=== PATIENT | female | born 1940 | race Caucasian/White ===

== ENCOUNTER 2016-12-31 17:41 | Inpatient (IN) | payer MEDICARE, MEDICAID ==
[~2016-12-31] VITALS: Ht 160 cm; Wt 61.0 kg
[~2016-12-31 17:41] MED LIST: ADVAIR DISK1 INH; ALBUTEROL SUL0.083 % IN; ALBUTEROL2.5 MG/3 M IN; ASPIRIN LOW DOS81 M2 PO; ATIVAN1 MG PO; ATROVENT I0.5 MG/VIA IN; AUGMENTIN500TAB PO; AUGMENTIN875 MG OR; AUGMENTIN875TAB PO; BACTROBAN2 % EX; BROVANA15 MCG IN; CEPHALEXIN500 MG PO; CIPRO500 MG OR; CIPROFLOXACN500 MG PO; DALIRESP500 MCG PO; DOXYCYC MONO100 M1 OR; FLEXERIL OR; FLEXERIL5 MG PO; FLUARIX QUADRIV1 IN2 IM; FLUARIX QUADRIV1 INJ IM; GABAPENTIN100 MG PO; GABAPENTIN300 MG PO; IRON325 M1 PO; KEFLEX500 MG PO; LEVAQUIN500 MG PO; LEVAQUIN750 MG PO; LORTAB 1010 MG PO; LORTAB 5 OR; LORTAB 5/3255 MG PO; LORTAB 7.57.5 MG PO; MEDDOSEPAK OR; MEDDOSEPAK PO; MEDROL4 M1 PO; MIRAPEX0.5 MG PO; MUCUS RELIEF E600 MG PO; MULTI VIT PO; MUPIROCIN2 % EX; NEURONTIN300 MG PO; NO HOME MEDS; NORCO1 TA1 PO; OXY1; PERCOCET 5/321 COMBO PO; PLAVIX75 MG PO; PREDNISONE10 MG PO; PREDNISONE20 MG OR; PREDNISONE20 MG PO; PRILOSEC40 MG PO; PROAIR HFA IN; PROTONIX20 M1 PO; PULMICORT0.25 MG/2 IN; PYRIDIUM200 MG OR; PYRIDIUM200 MG PO; RESTORIL15 MG PO; ROBITUSSIN AC10 ML PO; SINGULAIR PO; SINGULAIR10 MG PO; SOMA350 MG PO; TRAMADOL HCL50 MG PO; TYLENOL # 31 TA1 PO; ULTRACET 37.5-31 TAB PO; ULTRACET PO; ULTRAM50 M1 PO; ULTRAM50 MG OR; VENTOLIN HF1 IN; VENTOLIN HFA IN; ZITHROMAX250 MG PO; ZPAK PO
--- NOTE | 2016-12-31 18:00 | NUR ---
PATIENT AMBULATED TO LOBBY AWAITING ROOM ASSIGNMNET
--- NOTE | 2016-12-31 18:26 | NUR ---
PATIENT TO ROOM MD AT BEDSIDE
--- NOTE | 2016-12-31 20:02 | NUR ---
REPORT RECEIVED FROM DAYDAY HUSTON. PT RESTING QUIETLY STATES PAIN MEDICATION HAS KICKED IN AND FEELS MUCH BETTER, ANTIBIOTIC INFUSING.
--- NOTE | 2016-12-31 20:26 | NUR ---
PT RESTING QUIETLY, WARM BLANKET GIVEN, LIGHTS TURNED DOWN
--- NOTE | 2016-12-31 21:11 | NUR ---
PT STILL RESTING QUIETLY ON STRETCHER, WATCHING TV, VITAL SIGNS STABLE. PAIN HAS DECREASED TO A 3
[2016-12-31 21:17] LABS: HEMATOCRIT 37.8 % (37.0-47.0); HEMOGLOBIN 12.7 g/dl (12.0-16.0); IMMATURE GRANULOCYTES 1.6 % (0.0-1.0); MEAN CELL VOLUME 87.5 fL CALC (80.0-100.0); MEAN CORPUSCULAR HGB 29.4 pG CALC (26.0-32.0); MEAN CORPUSCULAR HGB CONC 33.6 g/L CALC (32.0-36.0); NEUT# 11.53 thou/uL (2.00-7.15); RED BLOOD COUNT 4.32 mill/uL (4.20-5.60); RED CELL DISTRI WIDTH 13.6 % (11.5-15.5)
[2016-12-31 21:32] LABS: ALBUMIN 4.3 g/dL (3.2-5.0); ALKALINE PHOSPHATASE 136 u/l (38-126); ANION GAP 16 (6-22 (CALC)); BILIRUBIN, TOTAL 0.3 mg/dL (0.0-1.4); BUN 7 mg/dL (8-23); BUN/CREATININE RATIO 11 (12-20 (CALC)); CALCIUM 9.2 mg/dL (8.4-10.2); CARBON DIOXIDE 27 mmol/l (22-30); CHLORIDE 99 mmol/l (95-108); CREATININE 0.6 mg/dL (0.5-1.0); GFR > 60 ML/MIN (>=60 (CALC)); GFR FOR AFR.AMER. > 60 ML/MIN (>=60 (CALC)); GLUCOSE 90 mg/dL (82-115); POTASSIUM 4.2 mmol/l (3.5-5.1); SGOT/AST 29 u/l (9-36); SGPT/ALT 30 u/l (11-66); SODIUM 137 mmol/l (137-146); TOTAL PROTEIN 7.6 g/dL (6.3-8.2)
--- NOTE | 2016-12-31 22:27 | NUR ---
Admission Note Report Given to: sbar printed to floor Transported by: Wheelchair x Stretcher Transported with: x Nurse Transporter x Patent IV [id number] Yard Stocker
--- NOTE | 2016-12-31 22:36 | NUR ---
REPORT GIVEN TO COTY ON MED/SURG AND PATIENT TAKEN UPSTAIRS ON THIS GURNEY BY THIS CHIEF LIFESTYLE OFFICER.
[2016-12-31 22:40] VITALS: BP 132/64
--- NOTE | 2016-12-31 22:40 | NUR ---
PT.ARRIVED TO FLOOR ACCOMPANIED BY GERTRUDEED NURSE; PT.IS STABLE AT THIS TIME; PT.ORIENTED TO ROOM,CALL LIGHT, BED,LIGHTS, V/S ASSESSED, PT.ASSESSED AND SETTLED INTO BED; CALL LIGHT AND BST PLACED W/IN REACH AND PO FLUIDS PROVIDED
--- NOTE | 2017-01-01 00:49 | NUR ---
NOTIFIED AT THIS TIME OF LACK OF ORDERS, NEW ORDERS RECEIVED AND ORDERS FOR HOME MEDS CONTINUED; WILL INITIATE ORDERS
--- NOTE | 2017-01-01 02:30 | NUR ---
PT. MEDICATED FOR PAIN IN L.HAND AND PROVIDED COOL AND WARM PACK FOR COMFORT CARE OF HAND AND PILLOW FOR POSITIONING; WILL FOLLOW-UP FOR PAIN REASSESSMENT; HOME MEDICATIONS RECONCILED UPON REQUEST FROM
[2017-01-01 03:44] VITALS: BP 115/37
[2017-01-01 06:27] LABS: HEMATOCRIT 32.4 % (37.0-47.0); HEMOGLOBIN 10.7 g/dl (12.0-16.0); IMMATURE GRANULOCYTES 0.3 % (0.0-1.0); MEAN CELL VOLUME 88.5 fL CALC (80.0-100.0); MEAN CORPUSCULAR HGB 29.2 pG CALC (26.0-32.0); NEUT# 6.49 thou/uL (2.00-7.15); RED BLOOD COUNT 3.66 mill/uL (4.20-5.60); RED CELL DISTRI WIDTH 13.5 % (11.5-15.5)
[2017-01-01 06:44] LABS: ALBUMIN 3.3 g/dL (3.2-5.0); ALKALINE PHOSPHATASE 98 u/l (38-126); ANION GAP 11 (6-22 (CALC)); BILIRUBIN, TOTAL 0.6 mg/dL (0.0-1.4); BUN 7 mg/dL (8-23); BUN/CREATININE RATIO 10 (12-20 (CALC)); CALCIUM 8.4 mg/dL (8.4-10.2); CARBON DIOXIDE 28 mmol/l (22-30); CHLORIDE 95 mmol/l (95-108); CREATININE 0.7 mg/dL (0.5-1.0); GFR > 60 ML/MIN (>=60 (CALC)); GFR FOR AFR.AMER. > 60 ML/MIN (>=60 (CALC)); GLUCOSE 78 mg/dL (82-115); POTASSIUM 3.9 mmol/l (3.5-5.1); SGOT/AST 23 u/l (9-36); SGPT/ALT 31 u/l (11-66); SODIUM 130 mmol/l (137-146); TOTAL PROTEIN 6.1 g/dL (6.3-8.2)
--- NOTE | 2017-01-01 07:41 | NUR ---
BEDSIDE REPORT RECEIVED FROM BETZAIDA HOBBS. PT REPROTS MODERATE PAIN TO LEFT HAND. PAIN MEDICATION AND SCHEDULE REVIEWED. PLAN OF CARE DISCUSSED. CALL LIGHT REVIEWED AND IN REACH. PT STATES UNDERSTANDING.
[2017-01-01 07:56] LABS: URINE BILIRUBIN - DIPSTICK NEGATIVE (NEGATIVE); URINE BLOOD DIPSTICK NEGATIVE (NEGATIVE); URINE CLARITY CLEAR; URINE COLOR YELLOW; URINE GLUCOSE - DIPSTICK NEGATIVE (NEGATIVE); URINE KETONE NEGATIVE (NEGATIVE); URINE LEUK ESTERASE NEGATIVE (NEGATIVE); URINE NITRITE - DIPSTICK NEGATIVE (Negative); URINE PH 5.5 (4.5-8.0); URINE PROTEIN - DIPSTICK NEGATIVE (NEG-TRACE); URINE UROBILINOGEN - DIPSTICK 0.2 E.U./dL (0.2)
--- NOTE | 2017-01-01 12:01 | NUR ---
PT SITTING UPRIGHT IN BED. PT'S SON AT BEDSIDE. DENIES PAIN AT THIS TIME. LEFT HAND ELEVATED ON PILLOW. WILL CONTINUE TO MONITOR.
[2017-01-01 16:00] VITALS: BP 123/61
--- NOTE | 2017-01-01 16:07 | NUR ---
PT TALKING ON CELL PHONE IN BED AT THIS TIME. APPEARS COMFORTABLE. NO COMPLAINTS. CALL LIGHT WITHIN REACH.
--- NOTE | 2017-01-01 19:00 | NUR ---
REPORT RECEIVED [facility] [place] PT.IS UPRIGHT IN BED AT THIS TIME WATCHING TV AND TALKING ON PHONE; DENIES ANY NEEDS AT THIS TIME, CALL LIGHT W/IN REACH
[2017-01-01 19:07] VITALS: BP 139/46
--- NOTE | 2017-01-01 21:00 | NUR ---
CALLED, HE IS IN ROUTE TO PERFORM A BEDSIDE D&C ON PT.FINGER, WILL PREP ROOM AND ORDERS REQUESTED
--- NOTE | 2017-01-01 21:40 | NUR ---
PERFORMED D&C AT BEDSIDE ON PT.LEFT 3RD FINGER; PT.WAS PREVIOUSLY MEDICATED W/PAIN MEDICATION ORDERED; PT.TOLERATED PROCEDURE WELL AND IS RESTING; DRESSING HAD TO BE CHANGED DUE TO BLEEDING THROUGH, BLEEDING HAS NOW SLOWED AND DRESSING IS CDI AT THIS TIME, WILL CONTINUE TO MONITOR
[2017-01-02 04:32] VITALS: BP 147/51
[2017-01-02 05:24] LABS: ALBUMIN 3.6 g/dL (3.2-5.0); ALKALINE PHOSPHATASE 110 u/l (38-126); ANION GAP 12 (6-22 (CALC)); BILIRUBIN, TOTAL 0.4 mg/dL (0.0-1.4); BUN 11 mg/dL (8-23); BUN/CREATININE RATIO 16 (12-20 (CALC)); CALCIUM 8.8 mg/dL (8.4-10.2); CARBON DIOXIDE 28 mmol/l (22-30); CHLORIDE 100 mmol/l (95-108); CREATININE 0.7 mg/dL (0.5-1.0); GFR > 60 ML/MIN (>=60 (CALC)); GFR FOR AFR.AMER. > 60 ML/MIN (>=60 (CALC)); GLUCOSE 88 mg/dL (82-115); POTASSIUM 4.1 mmol/l (3.5-5.1); SGOT/AST 27 u/l (9-36); SGPT/ALT 27 u/l (11-66); SODIUM 136 mmol/l (137-146); TOTAL PROTEIN 6.6 g/dL (6.3-8.2)
[2017-01-02 05:36] LABS: HEMATOCRIT 32.1 % (37.0-47.0); HEMOGLOBIN 10.7 g/dl (12.0-16.0); IMMATURE GRANULOCYTES 0.3 % (0.0-1.0); MEAN CELL VOLUME 88.2 fL CALC (80.0-100.0); MEAN CORPUSCULAR HGB 29.4 pG CALC (26.0-32.0); MEAN CORPUSCULAR HGB CONC 33.3 g/L CALC (32.0-36.0); NEUT# 6.61 thou/uL (2.00-7.15); RED BLOOD COUNT 3.64 mill/uL (4.20-5.60); RED CELL DISTRI WIDTH 13.3 % (11.5-15.5)
--- NOTE | 2017-01-02 06:04 | NUR ---
PT.SLEEPING SOUNDLY UPON ENTERING ROOM, REPORTS PAIN HAS IMPROVED, IV ANTIBIOTIC THERAPY PROVIDED AT THIS TIME; CALL LIGHT W/IN REACH
--- NOTE | 2017-01-02 07:25 | NUR ---
REPORT RECEIVED FROM BETZAIDA HOBBS. PT SITTING UPRIGHT IN BED. DENIES PAIN. REPORTING OF CONCERNS ENCOURAGED. PLAN OF CARE DISCUSSED. CALL LIGHT REVIEWED AND IN REACH. PT STATES UNDERSTANDING.
[2017-01-02] MEDS ORDERED: CLEOCIN150 M1 PO (09:03)
--- NOTE | 2017-01-02 09:23 | NUR ---
Vancomycin dosing Age: 76 years Weight: 61 kg Height: 160 cm Gender: Female SCR: 0.7 mg/dl Dosing weight: 61 kg IBW: 52.40 kg CRCL (ml/min): 58.3 Richar (hr-1): 0.053 Half-life (hrs): 13.08 Vd (liters): 45.75 (factor: 0.75 L/kg) Vancomycin 750 mg q12 hrs to produce a predicted peak of 33 mcg/ml and a predicted trough of 19 mcg/ml based on (Population-based pharmacokinetic analysis) Trough to be drawn 01/03/17 at 1130 prior to 4th dose.
--- NOTE | 2017-01-02 09:32 | NUR ---
DRESSING CHANGED BY DR. BRIDGES. WOUND TO LEFT MIDDLE FINGER IRRIGATED WITH SALINE, GAUZE APPLIED, SECURED WITH TAPE.
--- NOTE | 2017-01-02 10:27 | NUR ---
PT WAS SEATED ON HER BED WAITING FOR HER FINGER TO BE REDONE SINCE IT WAS BLEEDING. I COUNSELED PT ON HER NEW PRESCRIPTION CLINDAMYCIN. I COUNSELED HER ON THE NEED TO LOOK OUT FOR ANY BLOODY STOOLS OR DIARRHEA. PT DID NOT HAVE ANY SIDE EFFECTS OR CONCERNS WITH ANY MEDICATION.
== END 2017-01-02 10:45 | disposition home or self-care (01) | DRG 580 ==
LOC: ENPENDDIS → ED 17:41 → ED-I 21:36 → ED 21:58 → MS2 21:59
PROVIDERS: Emergency Medicine; ADMIT Internal Medicine Geriatric Medicine; ATTEND Internal Medicine Geriatric Medicine
PROC: 0H9GXZZ Drainage of Left Hand Skin, External Approach (ICD-10-PCS; principal; 2017-01-01)
PROC: 0JBK0ZZ Excision of Left Hand Subcutaneous Tissue and Fascia, Open Approach (ICD-10-PCS; 2017-01-01)
DX: L03.012 Cellulitis of left finger (principal); J96.10 Chronic respiratory failure, unspecified whether with hypoxia or hypercapnia; Z99.81 Dependence on supplemental oxygen; J44.9 Chronic obstructive pulmonary disease, unspecified; I25.10 Atherosclerotic heart disease of native coronary artery without angina pectoris; I10 Essential (primary) hypertension; K21.9 Gastro-esophageal reflux disease without esophagitis; E03.9 Hypothyroidism, unspecified; G89.29 Other chronic pain; M54.5 Low back pain; I73.9 Peripheral vascular disease, unspecified; M19.90 Unspecified osteoarthritis, unspecified site; Z95.820 Peripheral vascular angioplasty status with implants and grafts; Z87.891 Personal history of nicotine dependence; Z87.11 Personal history of peptic ulcer disease; E78.00 Pure hypercholesterolemia, unspecified; I25.119 Atherosclerotic heart disease of native coronary artery with unspecified angina pectoris
CPT/HCPCS: J3370

== ENCOUNTER 2017-09-15 22:32 | Inpatient (IN) | payer MEDICARE, MEDICAID ==
[~2017-09-15] VITALS: Ht 157.5 cm; Wt 59.9 kg
[~2017-09-15 22:32] MED LIST changes: +CLEOCIN150 M1 PO
[2017-09-15] MEDS ORDERED: PAROXETINE10 M1 PO (22:49)
[2017-09-15] MEDS ORDERED: OMEPRAZOLE10 MG PO (22:50)
[2017-09-15] MEDS ORDERED: FLEXERIL5 MG PO (22:51)
[2017-09-15 23:12] LABS: HEMATOCRIT 37.1 % (37.0-47.0); HEMOGLOBIN 12.3 g/dl (12.0-16.0); IMMATURE GRANULOCYTES 0.3 % (0.0-1.0); MEAN CELL VOLUME 89.4 fL CALC (80.0-100.0); MEAN CORPUSCULAR HGB 29.6 pG CALC (26.0-32.0); MEAN CORPUSCULAR HGB CONC 33.2 g/L CALC (32.0-36.0); NEUT# 11.36 thou/uL (2.00-7.15); RED BLOOD COUNT 4.15 mill/uL (4.20-5.60); RED CELL DISTRI WIDTH 13.7 % (11.5-15.5)
[2017-09-15 23:19] LABS: ALBUMIN 4.4 g/dL (3.2-5.0); ALKALINE PHOSPHATASE 110 u/l (38-126); ANION GAP 15 (6-22 (CALC)); BILIRUBIN, TOTAL 0.8 mg/dL (0.0-1.4); BUN 9 mg/dL (8-23); BUN/CREATININE RATIO 15 (12-20 (CALC)); CALCIUM 9.3 mg/dL (8.4-10.2); CARBON DIOXIDE 27 mmol/l (22-30); CHLORIDE 97 mmol/l (95-108); CREATININE 0.6 mg/dL (0.5-1.0); GFR > 60 ML/MIN (>=60 (CALC)); GFR FOR AFR.AMER. > 60 ML/MIN (>=60 (CALC)); GLUCOSE 116 mg/dL (82-115); POTASSIUM 4.5 mmol/l (3.5-5.1); SGOT/AST 36 u/l (9-36); SGPT/ALT 16 u/l (11-66); SODIUM 134 mmol/l (137-146); TOTAL PROTEIN 7.9 g/dL (6.3-8.2)
[2017-09-15 23:31] LABS: MYOGLOBIN 85 ng/mL (0 - 62)
[2017-09-15 23:54] LABS: URINE BILIRUBIN - DIPSTICK NEGATIVE (NEGATIVE); URINE BLOOD DIPSTICK NEGATIVE (NEGATIVE); URINE COLOR YELLOW; URINE GLUCOSE - DIPSTICK NEGATIVE (NEGATIVE); URINE KETONE NEGATIVE (NEGATIVE); URINE LEUK ESTERASE NEGATIVE (NEGATIVE); URINE NITRITE - DIPSTICK NEGATIVE (Negative); URINE PROTEIN - DIPSTICK NEGATIVE (NEG-TRACE); URINE SPECIFIC GRAVITY <=1.005; URINE UROBILINOGEN - DIPSTICK 0.2 E.U./dL (0.2)
[2017-09-15 23:55] LABS: URINE CLARITY CLEAR
[2017-09-16 01:21] VITALS: BP 139/62
[2017-09-16 03:50] VITALS: BP 133/62
[2017-09-16 07:34] VITALS: BP 149/58
[2017-09-16] MEDS ORDERED: PLAVIX75 MG PO (09:01)
== END 2017-09-16 09:10 | disposition home or self-care (01) | DRG 191 ==
LOC: ED 22:32 → ED-I 09-16 → ED 09-16 00:39 → MS2 09-16 00:40
PROVIDERS: Emergency Medicine; ADMIT Internal Medicine Geriatric Medicine; ATTEND Internal Medicine Geriatric Medicine
DX: J44.1 Chronic obstructive pulmonary disease with (acute) exacerbation (principal); J96.10 Chronic respiratory failure, unspecified whether with hypoxia or hypercapnia; G62.9 Polyneuropathy, unspecified; Z99.81 Dependence on supplemental oxygen; I10 Essential (primary) hypertension; I25.10 Atherosclerotic heart disease of native coronary artery without angina pectoris; I73.9 Peripheral vascular disease, unspecified; K21.9 Gastro-esophageal reflux disease without esophagitis; K27.9 Peptic ulcer, site unspecified, unspecified as acute or chronic, without hemorrhage or perforation; E03.9 Hypothyroidism, unspecified; M19.90 Unspecified osteoarthritis, unspecified site; Z95.820 Peripheral vascular angioplasty status with implants and grafts

== ENCOUNTER 2017-11-23 22:37 | Emergency (ER) | payer MEDICARE, MEDICAID ==
[~2017-11-23] VITALS: Ht 157.5 cm; Wt 58.6 kg
[~2017-11-23 22:37] MED LIST changes: +OMEPRAZOLE10 MG PO; +PAROXETINE10 M1 PO
[2017-11-24 01:15] LABS: HEMATOCRIT 38.2 % (37.0-47.0); HEMOGLOBIN 12.3 g/dl (12.0-16.0); IMMATURE GRANULOCYTES 0.4 % (0.0-1.0); MEAN CELL VOLUME 88.2 fL CALC (80.0-100.0); MEAN CORPUSCULAR HGB 28.4 pG CALC (26.0-32.0); MEAN CORPUSCULAR HGB CONC 32.2 g/L CALC (32.0-36.0); NEUT# 5.31 thou/uL (2.00-7.15); RED BLOOD COUNT 4.33 mill/uL (4.20-5.60); RED CELL DISTRI WIDTH 14.2 % (11.5-15.5)
[2017-11-24 01:25] LABS: ALBUMIN 4.2 g/dL (3.2-5.0); ALKALINE PHOSPHATASE 135 u/l (38-126); ANION GAP 16 (6-22 (CALC)); BILIRUBIN, TOTAL 0.3 mg/dL (0.0-1.4); BUN 8 mg/dL (8-23); BUN/CREATININE RATIO 11 (12-20 (CALC)); CARBON DIOXIDE 28 mmol/l (22-30); CHLORIDE 100 mmol/l (95-108); CREATININE 0.7 mg/dL (0.5-1.0); GFR > 60 ML/MIN (>=60 (CALC)); GFR FOR AFR.AMER. > 60 ML/MIN (>=60 (CALC)); POTASSIUM 3.7 mmol/l (3.5-5.1); SGOT/AST 23 u/l (9-36); SGPT/ALT 16 u/l (11-66); SODIUM 140 mmol/l (137-146); TOTAL PROTEIN 7.9 g/dL (6.3-8.2)
[2017-11-24 01:30] LABS: INFLUENZA A NONE DETECTED (NONE DETECT); INFLUENZA B NONE DETECTED (NONE DETECT)
--- NOTE | 2017-11-24 01:30 | NUR ---
BREATHING TREATMENT GIVEN. BREATHING TECH. FOR GOOD DEPOSITION TO THE LUNGS. AND IN CASE OF SHORTNESS OF BREATH.
[2017-11-24] MEDS ORDERED: MEDDOSEPAK PO (02:29)
[2017-11-24 03:07] VITALS: BP 145/73
== END 2017-11-24 03:04 | disposition home or self-care (01) ==
LOC: ED 22:37
PROVIDERS: Emergency Medicine
DX: J44.1 Chronic obstructive pulmonary disease with (acute) exacerbation (principal); I25.10 Atherosclerotic heart disease of native coronary artery without angina pectoris; I73.9 Peripheral vascular disease, unspecified; R06.02 Shortness of breath

== ENCOUNTER 2018-10-29 10:05 | Inpatient (IN) | payer MEDICARE, MEDICAID ==
[2018-10-29] VITALS (36 sets, daily range): BP systolic 79–159; BP diastolic 57–76
[~2018-10-29] VITALS: Ht 157.5 cm; Wt 57.2 kg
[2018-10-29 10:46] LABS: HEMATOCRIT 36.9 % (37.0-47.0); HEMOGLOBIN 12.4 g/dl (12.0-16.0); IMMATURE GRANULOCYTES 1.3 % (0.0-5.0); MEAN CELL VOLUME 89.8 fL CALC (80.0-100.0); MEAN CORPUSCULAR HGB 30.2 pG CALC (26.0-32.0); MEAN CORPUSCULAR HGB CONC 33.6 g/L CALC (32.0-36.0); PLATELET COUNT 269 thou/uL (130-400); RED BLOOD COUNT 4.11 mill/uL (4.20-5.60); RED CELL DISTRI WIDTH 13.9 % (11.5-15.5)
[2018-10-29 10:53] LABS: ALBUMIN 4.1 g/dL (3.2-5.0); ALKALINE PHOSPHATASE 67 u/l (38-126); ANION GAP 21 (6-22 (CALC)); BILIRUBIN, TOTAL 0.9 mg/dL (0.0-1.4); BUN 20 mg/dL (8-23); BUN/CREATININE RATIO 13 (12-20 (CALC)); CHLORIDE 94 mmol/l (95-108); CREATININE 1.5 mg/dL (0.5-1.0); GFR 34 ML/MIN (>=60 (CALC)); GFR FOR AFR.AMER. 41 ML/MIN (>=60 (CALC)); SGOT/AST 50 u/l (9-36); SODIUM 132 mmol/l (137-146); TOTAL PROTEIN 7.7 g/dL (6.3-8.2)
[2018-10-29 11:00] LABS: CARBON DIOXIDE 21 mmol/l (22-30)
[2018-10-29] MEDS ORDERED: XANAX0.5 MG PO (11:00)
[2018-10-29] MEDS ORDERED: LORTAB 5/3255 MG PO (11:01)
[2018-10-29] MEDS ORDERED: PROAIR HFA IN (11:02)
[2018-10-29] MEDS ORDERED: BROVANA15 MCG/2 M IN (11:03)
[2018-10-29] MEDS ORDERED: MULTI VIT PO (11:04)
[2018-10-29 11:06] LABS: MYOGLOBIN 373 ng/mL (0 - 62)
[2018-10-29 11:14] LABS: BAND 34 % (0-8)
[2018-10-29 11:15] LABS: MANUAL DIFFERENTIAL YES
[2018-10-29] MEDS ORDERED: SIMBRINZA1 SUS OD (12:13)
[2018-10-29] MEDS ORDERED: PROLENSA0.07 % OD (12:14)
[2018-10-29] MEDS ORDERED: DUREZOL0.05 % OD (12:15)
[2018-10-30] VITALS (19 sets, daily range): BP systolic 107–158; BP diastolic 57–77
[2018-10-30 05:28] LABS: HEMATOCRIT 32.4 % (37.0-47.0); HEMOGLOBIN 10.5 g/dl (12.0-16.0); IMMATURE GRANULOCYTES 5.4 % (0.0-5.0); MEAN CORPUSCULAR HGB 29.2 pG CALC (26.0-32.0); MEAN CORPUSCULAR HGB CONC 32.4 g/L CALC (32.0-36.0); RED CELL DISTRI WIDTH 13.8 % (11.5-15.5)
[2018-10-30 05:44] LABS: ALKALINE PHOSPHATASE 58 u/l (38-126); ANION GAP 12 (6-22 (CALC)); BILIRUBIN, TOTAL 0.3 mg/dL (0.0-1.4); BUN 18 mg/dL (8-23); BUN/CREATININE RATIO 23 (12-20 (CALC)); CARBON DIOXIDE 24 mmol/l (22-30); CHLORIDE 100 mmol/l (95-108); CREATININE 0.8 mg/dL (0.5-1.0); GFR > 60 ML/MIN (>=60 (CALC)); GFR FOR AFR.AMER. > 60 ML/MIN (>=60 (CALC)); POTASSIUM 3.5 mmol/l (3.5-5.1); SGOT/AST 29 u/l (9-36); SODIUM 132 mmol/l (137-146); TOTAL PROTEIN 6.5 g/dL (6.3-8.2)
[2018-10-30 05:54] LABS: ALBUMIN 3.2 g/dL (3.2-5.0)
[2018-10-30 06:25] LABS: MANUAL DIFFERENTIAL YES; PLATELET COUNT 185 thou/uL (130-400)
[2018-10-30 06:26] LABS: BAND 20 % (0-8)
[2018-10-30 06:27] LABS: MICROCYTOSIS FEW; PLATELET ESTIMATE NORMAL
[2018-10-30 06:28] LABS: HYPOCHROMIA MODERATE; OVALOCYTES FEW; STOMATOCYTE FEW
[2018-10-31] VITALS (13 sets, daily range): BP systolic 119–206; BP diastolic 53–73
[2018-10-31 05:55] LABS: HEMATOCRIT 28.7 % (37.0-47.0); HEMOGLOBIN 9.6 g/dl (12.0-16.0); MEAN CELL VOLUME 87.5 fL CALC (80.0-100.0); MEAN CORPUSCULAR HGB 29.3 pG CALC (26.0-32.0); MEAN CORPUSCULAR HGB CONC 33.4 g/L CALC (32.0-36.0); NEUT# 18.42 thou/uL (2.00-7.15); RED BLOOD COUNT 3.28 mill/uL (4.20-5.60); RED CELL DISTRI WIDTH 13.6 % (11.5-15.5)
[2018-10-31 06:03] LABS: ALBUMIN 2.8 g/dL (3.2-5.0); ALKALINE PHOSPHATASE 74 u/l (38-126); BILIRUBIN, TOTAL 0.3 mg/dL (0.0-1.4); BUN 12 mg/dL (8-23); BUN/CREATININE RATIO 21 (12-20 (CALC)); CARBON DIOXIDE 22 mmol/l (22-30); CHLORIDE 101 mmol/l (95-108); CREATININE 0.6 mg/dL (0.5-1.0); GFR > 60 ML/MIN (>=60 (CALC)); GFR FOR AFR.AMER. > 60 ML/MIN (>=60 (CALC)); SGOT/AST 24 u/l (9-36); SODIUM 130 mmol/l (137-146); TOTAL PROTEIN 5.7 g/dL (6.3-8.2)
[2018-10-31 06:10] LABS: ANION GAP 11 (6-22 (CALC)); POTASSIUM 4.3 mmol/l (3.5-5.1)
[2018-10-31 07:01] LABS: IMMATURE GRANULOCYTES 6.3 % (0.0-5.0)
[2018-11-01] VITALS: BP 159/78
[2018-11-01 02:00] VITALS: BP 173/74
[2018-11-01 04:00] VITALS: BP 176/68
[2018-11-01 06:00] VITALS: BP 164/72
[2018-11-01 06:02] LABS: HEMATOCRIT 29.8 % (37.0-47.0); IMMATURE GRANULOCYTES 0.5 % (0.0-5.0); MEAN CELL VOLUME 87.9 fL CALC (80.0-100.0); MEAN CORPUSCULAR HGB 29.5 pG CALC (26.0-32.0); MEAN CORPUSCULAR HGB CONC 33.6 g/L CALC (32.0-36.0); NEUT# 15.24 thou/uL (2.00-7.15); RED BLOOD COUNT 3.39 mill/uL (4.20-5.60)
[2018-11-01 06:13] LABS: ANION GAP 11 (6-22 (CALC)); BUN 10 mg/dL (8-23); BUN/CREATININE RATIO 21 (12-20 (CALC)); CARBON DIOXIDE 26 mmol/l (22-30); CHLORIDE 102 mmol/l (95-108); CREATININE 0.5 mg/dL (0.5-1.0); GFR > 60 ML/MIN (>=60 (CALC)); GFR FOR AFR.AMER. > 60 ML/MIN (>=60 (CALC)); POTASSIUM 4.4 mmol/l (3.5-5.1); SODIUM 135 mmol/l (137-146)
[2018-11-01 08:00] VITALS: BP 183/83
[2018-11-01] MEDS ORDERED: PREDNISONE20 MG PO (08:35)
[2018-11-01] MEDS ORDERED: Levaquin PO (08:35)
[2018-11-01] MEDS ORDERED: DIGOXIN0.125 MG PO (08:36)
[2018-11-01 10:00] VITALS: BP 165/75
== END 2018-11-01 10:13 | disposition home or self-care (01) | DRG 191 ==
LOC: ED 10:05 → ED-I 13:13 → ED 13:48 → ICU 13:49
PROVIDERS: Emergency Medicine; ADMIT Internal Medicine Geriatric Medicine; ATTEND Internal Medicine Geriatric Medicine
PROC: 0T9B70Z Drainage of Bladder with Drainage Device, Via Natural or Artificial Opening (ICD-10-PCS; principal; 2018-10-29)
DX: J44.1 Chronic obstructive pulmonary disease with (acute) exacerbation (principal); J96.10 Chronic respiratory failure, unspecified whether with hypoxia or hypercapnia; I10 Essential (primary) hypertension; I25.10 Atherosclerotic heart disease of native coronary artery without angina pectoris; I73.9 Peripheral vascular disease, unspecified; I48.0 Paroxysmal atrial fibrillation; M19.90 Unspecified osteoarthritis, unspecified site; K27.9 Peptic ulcer, site unspecified, unspecified as acute or chronic, without hemorrhage or perforation; K21.9 Gastro-esophageal reflux disease without esophagitis; Z99.81 Dependence on supplemental oxygen; Z95.820 Peripheral vascular angioplasty status with implants and grafts
CPT/HCPCS: J0282; J1160; J3475; S0164

== ENCOUNTER 2018-11-28 14:10 | Emergency (ER) | payer MEDICARE, MEDICAID ==
[~2018-11-28] VITALS: Ht 157.5 cm; Wt 56.8 kg
[~2018-11-28 14:10] MED LIST changes: +BROVANA15 MCG/2 M IN; +DIGOXIN0.125 MG PO; +DUREZOL0.05 % OD; +Levaquin PO; +PROLENSA0.07 % OD; +SIMBRINZA1 SUS OD; +XANAX0.5 MG PO
[2018-11-28 14:44] LABS: HEMOGLOBIN 11.7 g/dl (12.0-16.0); IMMATURE GRANULOCYTES 0.4 % (0.0-5.0); MEAN CELL VOLUME 89.7 fL CALC (80.0-100.0); MEAN CORPUSCULAR HGB 28.6 pG CALC (26.0-32.0); MEAN CORPUSCULAR HGB CONC 31.9 g/L CALC (32.0-36.0); NEUT# 13.36 thou/uL (2.00-7.15); RED BLOOD COUNT 4.09 mill/uL (4.20-5.60); RED CELL DISTRI WIDTH 13.8 % (11.5-15.5)
[2018-11-28 14:45] LABS: HEMATOCRIT 36.7 % (37.0-47.0)
[2018-11-28 15:11] LABS: ALKALINE PHOSPHATASE 87 u/l (38-126); ANION GAP 17 (6-22 (CALC)); BILIRUBIN, TOTAL 0.5 mg/dL (0.0-1.4); BUN 9 mg/dL (8-23); BUN/CREATININE RATIO 16 (12-20 (CALC)); CARBON DIOXIDE 25 mmol/l (22-30); CHLORIDE 93 mmol/l (95-108); CREATININE 0.6 mg/dL (0.5-1.0); GFR > 60 ML/MIN (>=60 (CALC)); GFR FOR AFR.AMER. > 60 ML/MIN (>=60 (CALC)); POTASSIUM 4.9 mmol/l (3.5-5.1); SGOT/AST 28 u/l (9-36); SODIUM 129 mmol/l (137-146)
[2018-11-28 15:14] LABS: ALBUMIN 4.2 g/dL (3.2-5.0); TOTAL PROTEIN 7.7 g/dL (6.3-8.2)
[2018-11-28 16:42] VITALS: BP 164/71
[2018-11-28] MEDS ORDERED: ZITHROMAX250 MG PO (16:46)
[2018-11-28] MEDS ORDERED: MEDDOSEPAK PO (16:49)
== END 2018-11-28 16:58 | disposition home or self-care (01) ==
LOC: ED 14:10
PROVIDERS: Emergency Medicine
DX: R41.0 Disorientation, unspecified (principal); T50.905A Adverse effect of unspecified drugs, medicaments and biological substances, initial encounter; J06.9 Acute upper respiratory infection, unspecified; J44.9 Chronic obstructive pulmonary disease, unspecified; M19.90 Unspecified osteoarthritis, unspecified site; I73.9 Peripheral vascular disease, unspecified; I25.10 Atherosclerotic heart disease of native coronary artery without angina pectoris; F32.9 Major depressive disorder, single episode, unspecified; Z99.81 Dependence on supplemental oxygen; R94.31 Abnormal electrocardiogram [ECG] [EKG]

== ENCOUNTER → 2018-12-15 | Outpatient (REF) | payer MEDICARE, MEDICAID ==
[2018-12-15 13:50] LABS: HEMATOCRIT 37.4 % (37.0-47.0); HEMOGLOBIN 11.7 g/dl (12.0-16.0); IMMATURE GRANULOCYTES 0.3 % (0.0-5.0); MEAN CELL VOLUME 90.1 fL CALC (80.0-100.0); MEAN CORPUSCULAR HGB 28.2 pG CALC (26.0-32.0); MEAN CORPUSCULAR HGB CONC 31.3 g/L CALC (32.0-36.0); NEUT# 6.76 thou/uL (2.00-7.15); RED BLOOD COUNT 4.15 mill/uL (4.20-5.60); RED CELL DISTRI WIDTH 13.9 % (11.5-15.5)
[2018-12-15 14:27] LABS: ALBUMIN 4.4 g/dL (3.2-5.0); ALKALINE PHOSPHATASE 97 u/l (38-126); BILIRUBIN, TOTAL 0.5 mg/dL (0.0-1.4); BUN 10 mg/dL (8-23); BUN/CREATININE RATIO 19 (12-20 (CALC)); CALCULATED LDLCHOLESTEROL 93 mg/dL (62-129 (CALC)); CARBON DIOXIDE 30 mmol/l (22-30); CHLORIDE 96 mmol/l (95-108); CREATININE 0.6 mg/dL (0.5-1.0); GFR > 60 ML/MIN (>=60 (CALC)); GFR FOR AFR.AMER. > 60 ML/MIN (>=60 (CALC)); HDL CHOLESTEROL 105 mg/dL (>=40); SGOT/AST 31 u/l (9-36); TOTAL CHOLESTEROL 211 mg/dl (0-199); TOTAL PROTEIN 8.1 g/dL (6.3-8.2); TRIGLYCERIDES REFLEX TO dLDL 70 mg/dl (30-149); VLDL CHOLESTROL 14 mg/dl (0-48 (CALC))
[2018-12-15 14:33] LABS: ANION GAP 14 (6-22 (CALC)); POTASSIUM 3.9 mmol/l (3.5-5.1); SODIUM 136 mmol/l (137-146)
== END | disposition home or self-care (01) ==
LOC: LAB 13:31
PROVIDERS: ATTEND Internal Medicine Geriatric Medicine
DX: I10 Essential (primary) hypertension (principal)

== ENCOUNTER 2019-02-03 10:24 | Emergency (ER) | payer MEDICARE, MEDICAID ==
[~2019-02-03] VITALS: Ht 157.5 cm; Wt 45.0 kg
[2019-02-03 11:12] LABS: HEMATOCRIT 34.4 % (37.0-47.0); HEMOGLOBIN 10.8 g/dl (12.0-16.0); IMMATURE GRANULOCYTES 0.3 % (0.0-5.0); MEAN CELL VOLUME 88.4 fL CALC (80.0-100.0); MEAN CORPUSCULAR HGB 27.8 pG CALC (26.0-32.0); MEAN CORPUSCULAR HGB CONC 31.4 g/L CALC (32.0-36.0); NEUT# 5.86 thou/uL (2.00-7.15); RED BLOOD COUNT 3.89 mill/uL (4.20-5.60); RED CELL DISTRI WIDTH 13.6 % (11.5-15.5)
[2019-02-03 12:31] LABS: PROTHROMBIN TIME 10.1 SECONDS (9.0-12.5)
[2019-02-03] MEDS ORDERED: CATAPRES0.1 MG PO (12:37)
[2019-02-03 12:49] VITALS: BP 187/77
== END 2019-02-03 13:21 | disposition home or self-care (01) ==
LOC: ED 10:24
PROVIDERS: Emergency Medicine
PROC: 2Y41X5Z Packing of Nasal Region using Packing Material (ICD-10-PCS; principal; 2019-02-03)
DX: R04.0 Epistaxis (principal); I10 Essential (primary) hypertension; J44.9 Chronic obstructive pulmonary disease, unspecified; I25.10 Atherosclerotic heart disease of native coronary artery without angina pectoris; Z99.81 Dependence on supplemental oxygen

== ENCOUNTER 2019-03-05 14:38 | Emergency (ER) | payer MEDICARE, MEDICAID ==
[~2019-03-05] VITALS: Ht 157.5 cm; Wt 58.0 kg
[~2019-03-05 14:38] MED LIST changes: +CATAPRES0.1 MG PO
[2019-03-05 15:43] VITALS: BP 128/52
== END 2019-03-05 15:43 | disposition home or self-care (01) ==
LOC: ED 14:38
PROC: 2Y41X5Z Packing of Nasal Region using Packing Material (ICD-10-PCS; principal; 2019-03-05)
DX: R04.0 Epistaxis (principal)

== ENCOUNTER 2019-04-11 13:00 | Emergency (ER) | payer MEDICARE, MEDICAID ==
[~2019-04-11] VITALS: Ht 157.5 cm; Wt 58.0 kg
[2019-04-11] MEDS ORDERED: NORCO1 TA1 PO (13:23)
[2019-04-11] MEDS ORDERED: NEURONTIN100 MG PO (13:23)
[2019-04-11] MEDS ORDERED: PAROXETINE10 MG PO (13:24)
[2019-04-11] MEDS ORDERED: RESTORIL15 MG PO (13:25)
[2019-04-11] MEDS ORDERED: DIGOXIN0.125 MG PO (13:25)
[2019-04-11] MEDS ORDERED: CYCLOBENZAPR5 MG PO (13:26)
[2019-04-11] MEDS ORDERED: LOPRESSOR25 MG PO (13:27)
[2019-04-11] MEDS ORDERED: CLONIDINE0.1 MG PO (13:28)
[2019-04-11] MEDS ORDERED: MONTELUKAST SOD10 MG PO (13:28)
[2019-04-11] MEDS ORDERED: ATORVASTATIN CA10 MG PO (13:29)
[2019-04-11] MEDS ORDERED: ADLT ASA LOW81 MG PO (13:29)
[2019-04-11] MEDS ORDERED: PRAMIPEXOLE DI0.5 MG PO (13:30)
[2019-04-11] MEDS ORDERED: PRILOSEC20 MG PO (13:31)
[2019-04-11] MEDS ORDERED: DALIRESP500 MCG PO (13:32)
[2019-04-11] MEDS ORDERED: OXY1 (13:34)
[2019-04-11 14:50] VITALS: BP 134/54
== END 2019-04-11 14:50 | disposition home or self-care (01) ==
LOC: ED 13:00
DX: M19.032 Primary osteoarthritis, left wrist (principal); I10 Essential (primary) hypertension; J44.9 Chronic obstructive pulmonary disease, unspecified; I25.10 Atherosclerotic heart disease of native coronary artery without angina pectoris; I73.9 Peripheral vascular disease, unspecified; Z99.81 Dependence on supplemental oxygen

== ENCOUNTER 2020-06-01 09:55 | Inpatient (IN) | payer MEDICARE, MEDICAID ==
[~2020-06-01] VITALS: Ht 157.5 cm; Wt 51.6 kg
[~2020-06-01 09:55] MED LIST changes: +ADLT ASA LOW81 MG PO; +ATORVASTATIN CA10 MG PO; +CLONIDINE0.1 MG PO; +CYCLOBENZAPR5 MG PO; +LOPRESSOR25 MG PO; +MONTELUKAST SOD10 MG PO; +NEURONTIN100 MG PO; +PAROXETINE10 MG PO; +PRAMIPEXOLE DI0.5 MG PO; +PRILOSEC20 MG PO
[2020-06-01 10:27] LABS: HEMATOCRIT 36.9 % (37.0-47.0); HEMOGLOBIN 11.2 g/dl (12.0-16.0); IMMATURE GRANULOCYTES 0.5 % (0.0-5.0); MEAN CELL VOLUME 88.9 fL CALC (80.0-100.0); MEAN CORPUSCULAR HGB CONC 30.4 g/dL CAL (32.0-36.0); NEUT# 21.58 thou/uL (2.00-7.15); RED BLOOD COUNT 4.15 mill/uL (4.20-5.60); RED CELL DISTRI WIDTH 13.7 % (11.5-15.5)
[2020-06-01 10:41] LABS: ALBUMIN 4.1 g/dL (3.2-5.0); ALKALINE PHOSPHATASE 107 u/l (38-126); ANION GAP 13 (6-22 (CALC)); BILIRUBIN, TOTAL 0.5 mg/dL (0.0-1.4); BUN 9 mg/dL (8-23); BUN/CREATININE RATIO 18 (12-20 (CALC)); C-REACTIVE PROTEIN 1.5 mg/dL (0-0.9); CARBON DIOXIDE 26 mmol/l (22-30); CHLORIDE 99 mmol/l (95-108); CREATININE 0.5 mg/dL (0.5-1.0); GFR > 60 ML/MIN (>=60 (CALC)); GFR FOR AFR.AMER. > 60 ML/MIN (>=60 (CALC)); LIPASE 30 u/l (23-300); MAGNESIUM 1.4 mg/dL (1.6-2.3); POTASSIUM 3.9 mmol/l (3.5-5.1); SGOT/AST 25 u/l (9-36); SODIUM 133 mmol/l (137-146); TOTAL PROTEIN 7.7 g/dL (6.3-8.2)
[2020-06-01 10:44] LABS: PROTHROMBIN TIME 10.2 SECONDS (9.0-12.5)
[2020-06-01] MEDS ORDERED: ALPRAZOLAM0.5 MG PO (12:23)
[2020-06-01] MEDS ORDERED: CLONIDINE0.1 MG PO (12:24)
[2020-06-01] MEDS ORDERED: REGLAN10 MG PO (12:25)
[2020-06-01] MEDS ORDERED: NORVASC5 M1 PO (12:26)
[2020-06-01] MEDS ORDERED: LIPITOR10 M1 PO (12:27)
[2020-06-01] MEDS ORDERED: FERR SULFATE325 MG PO (12:28)
[2020-06-01] MEDS ORDERED: STIOLTO RESPIMA1 AER IN (12:28)
[2020-06-01] MEDS ORDERED: GABAPENTIN100 MG PO (12:29)
[2020-06-01 12:50] VITALS: BP 167/66
[2020-06-01 15:35] VITALS: BP 126/86
[2020-06-01 15:51] LABS: URINE BILIRUBIN - DIPSTICK NEGATIVE (NEGATIVE); URINE BLOOD DIPSTICK NEGATIVE (NEGATIVE); URINE COLOR YELLOW; URINE GLUCOSE - DIPSTICK NEGATIVE (NEGATIVE); URINE KETONE NEGATIVE (NEGATIVE); URINE LEUK ESTERASE NEGATIVE (NEGATIVE); URINE NITRITE - DIPSTICK NEGATIVE (Negative); URINE PH 6.5 (4.5-8.0); URINE PROTEIN - DIPSTICK NEGATIVE (NEG-TRACE); URINE SPECIFIC GRAVITY 1.015; URINE UROBILINOGEN - DIPSTICK 0.2 E.U./dL (0.2)
[2020-06-01 19:30] VITALS: BP 157/63
[2020-06-01 20:13] VITALS: BP 140/75
[2020-06-01 23:56] VITALS: BP 149/63
[2020-06-02 04:20] VITALS: BP 143/61
[2020-06-02 05:57] LABS: MEAN CELL VOLUME 89.9 fL CALC (80.0-100.0); MEAN CORPUSCULAR HGB 27.3 pG CALC (26.0-32.0); MEAN CORPUSCULAR HGB CONC 30.3 g/dL CAL (32.0-36.0); RED BLOOD COUNT 3.08 mill/uL (4.20-5.60); RED CELL DISTRI WIDTH 14.2 % (11.5-15.5)
[2020-06-02 06:00] LABS: HEMATOCRIT 27.7 % (37.0-47.0); HEMOGLOBIN 8.4 g/dl (12.0-16.0)
[2020-06-02 06:19] LABS: ALKALINE PHOSPHATASE 78 u/l (38-126); ANION GAP 5 (6-22 (CALC)); BILIRUBIN, TOTAL 0.3 mg/dL (0.0-1.4); BUN 11 mg/dL (8-23); BUN/CREATININE RATIO 22 (12-20 (CALC)); CARBON DIOXIDE 27 mmol/l (22-30); CHLORIDE 105 mmol/l (95-108); CREATININE 0.5 mg/dL (0.5-1.0); GFR > 60 ML/MIN (>=60 (CALC)); GFR FOR AFR.AMER. > 60 ML/MIN (>=60 (CALC)); SGOT/AST 19 u/l (9-36); SODIUM 133 mmol/l (137-146)
[2020-06-02 06:21] LABS: ALBUMIN 2.8 g/dL (3.2-5.0); TOTAL PROTEIN 5.6 g/dL (6.3-8.2)
[2020-06-02 06:37] LABS: C-REACTIVE PROTEIN 16.6 mg/dL (0-0.9)
[2020-06-02 08:48] VITALS: BP 127/48
[2020-06-02 10:30] VITALS: BP 143/67
[2020-06-02 15:00] VITALS: BP 164/69
[2020-06-02 19:35] VITALS: BP 171/72
[2020-06-02 23:44] VITALS: BP 144/78
[2020-06-03 04:47] VITALS: BP 120/59
[2020-06-03 05:25] LABS: HEMATOCRIT 28.2 % (37.0-47.0); HEMOGLOBIN 8.6 g/dl (12.0-16.0); IMMATURE GRANULOCYTES 0.4 % (0.0-5.0); MEAN CELL VOLUME 90.1 fL CALC (80.0-100.0); MEAN CORPUSCULAR HGB 27.5 pG CALC (26.0-32.0); MEAN CORPUSCULAR HGB CONC 30.5 g/dL CAL (32.0-36.0); NEUT# 9.65 thou/uL (2.00-7.15); RED BLOOD COUNT 3.13 mill/uL (4.20-5.60); RED CELL DISTRI WIDTH 14.3 % (11.5-15.5)
[2020-06-03 05:47] LABS: ALKALINE PHOSPHATASE 87 u/l (38-126); ANION GAP 8 (6-22 (CALC)); BILIRUBIN, TOTAL 0.3 mg/dL (0.0-1.4); BUN 12 mg/dL (8-23); BUN/CREATININE RATIO 19 (12-20 (CALC)); CARBON DIOXIDE 29 mmol/l (22-30); CHLORIDE 99 mmol/l (95-108); CREATININE 0.6 mg/dL (0.5-1.0); GFR > 60 ML/MIN (>=60 (CALC)); GFR FOR AFR.AMER. > 60 ML/MIN (>=60 (CALC)); POTASSIUM 3.9 mmol/l (3.5-5.1); SGOT/AST 23 u/l (9-36); SODIUM 132 mmol/l (137-146)
[2020-06-03 10:30] VITALS: BP 131/56
[2020-06-03] MEDS ORDERED: MEDDOSEPAK PO (10:59)
[2020-06-03] MEDS ORDERED: AMOX/K CLAV875 M1 PO (11:07)
== END 2020-06-03 14:09 | disposition home or self-care (01) | DRG 194 ==
LOC: ED 09:55 → ED-I 11:10 → ED 11:56 → MS2 11:57
PROVIDERS: Family Medicine; Nurse Practitioner; Physician Assistant; ADMIT Internal Medicine; ATTEND Internal Medicine
DX: J18.9 Pneumonia, unspecified organism (principal); J96.10 Chronic respiratory failure, unspecified whether with hypoxia or hypercapnia; J44.0 Chronic obstructive pulmonary disease with (acute) lower respiratory infection; J44.1 Chronic obstructive pulmonary disease with (acute) exacerbation; E87.1 Hypo-osmolality and hyponatremia; I10 Essential (primary) hypertension; E83.42 Hypomagnesemia; I25.10 Atherosclerotic heart disease of native coronary artery without angina pectoris; K21.9 Gastro-esophageal reflux disease without esophagitis; I48.91 Unspecified atrial fibrillation; I73.9 Peripheral vascular disease, unspecified; Z99.81 Dependence on supplemental oxygen; Z20.828 Contact with and (suspected) exposure to other viral communicable diseases; E78.49 Other hyperlipidemia
CPT/HCPCS: J0692; J1650; J3370; J3475

== ENCOUNTER 2021-10-13 18:09 | Observation (INO) | payer MEDICARE, MEDICAID ==
[~2021-10-13] VITALS: Ht 154.9 cm; Wt 45.0 kg
[~2021-10-13 18:09] MED LIST changes: +ALPRAZOLAM0.5 MG PO; +AMOX/K CLAV875 M1 PO; +FERR SULFATE325 MG PO; +LIPITOR10 M1 PO; +NORVASC5 M1 PO; +REGLAN10 MG PO; +STIOLTO RESPIMA1 AER IN
--- NOTE | 2021-10-13 18:09 | NUR ---
PT TO ROOM 15 VIA EMS. RECD APPROX 1000 ML NS VIA IV MAKING MACHINE CATCHER.
[2021-10-13 18:33] VITALS: BP 111/43
[2021-10-13 18:34] VITALS: BP 108/44
[2021-10-13 18:35] VITALS: BP 95/38
[2021-10-13 18:39] LABS: HEMATOCRIT 29.2 % (37.0-47.0); IMMATURE GRANULOCYTES 0.2 % (0.0-5.0); MEAN CORPUSCULAR HGB CONC 31.2 g/dL CAL (32.0-36.0); NEUT# 12.72 thou/uL (2.00-7.15); RED BLOOD COUNT 3.14 mill/uL (4.20-5.60); RED CELL DISTRI WIDTH 13.7 % (11.5-15.5)
[2021-10-13 18:44] LABS: ALKALINE PHOSPHATASE 73 u/l (38-126); ANION GAP 6 (6-22 (CALC)); BUN 12 mg/dL (8-23); BUN/CREATININE RATIO 16 (12-20 (CALC)); CARBON DIOXIDE 28 mmol/l (22-30); CHLORIDE 99 mmol/l (95-108); CREATININE 0.8 mg/dL (0.5-1.0); GFR > 60 ML/MIN (>=60 (CALC)); GFR FOR AFR.AMER. > 60 ML/MIN (>=60 (CALC)); LIPASE 21 u/l (23-300); POTASSIUM 3.9 mmol/l (3.5-5.1); SGOT/AST 20 u/l (9-36); SODIUM 130 mmol/l (137-146); TOTAL PROTEIN 6.8 g/dL (6.3-8.2)
[2021-10-13 18:49] LABS: BILIRUBIN, TOTAL 0.6 mg/dL (0.0-1.4)
--- NOTE | 2021-10-13 18:55 | NUR ---
REPORT TO ELINA, RN
[2021-10-13 18:56] LABS: HEMOGLOBIN 9.1 g/dl (12.0-16.0)
[2021-10-13 18:57] LABS: MYOGLOBIN 38 ng/mL (0 - 62)
--- NOTE | 2021-10-13 20:18 | NUR ---
ASSISTED PT TO BSC TO VOID PT HAD NO S/S OF SYNCOPE TOERATED WELL SPEC TO LAB
--- NOTE | 2021-10-13 20:18 | NUR ---
OCC CONSTRUCTION ELECTRICIAN CANDICE COUGH SR NO ST T CHANGES DENIES CP.HOB ELEV 45 DEGREES
[2021-10-13 20:39] LABS: URINE BILIRUBIN - DIPSTICK NEGATIVE (NEGATIVE); URINE BLOOD DIPSTICK NEGATIVE (NEGATIVE); URINE COLOR YELLOW; URINE GLUCOSE - DIPSTICK NEGATIVE (NEGATIVE); URINE KETONE NEGATIVE (NEGATIVE); URINE LEUK ESTERASE NEGATIVE (NEGATIVE); URINE NITRITE - DIPSTICK NEGATIVE (Negative); URINE PH 6.5 (4.5-8.0); URINE PROTEIN - DIPSTICK NEGATIVE (NEG-TRACE); URINE UROBILINOGEN - DIPSTICK 0.2 E.U./dL (0.2)
--- NOTE | 2021-10-13 21:44 | NUR ---
W/P/D SKIN PY HAS NO PAIN NO SOB ON O2 2L/CEPHALOMETRIC ANALYST.PHONE REPORT TO MS
--- NOTE | 2021-10-13 21:50 | NUR ---
PT TRANSPORTED TO RM 272 VIA ON TELE AND O2 IN IMPROVED STABLE CONDITION
--- NOTE | 2021-10-13 22:15 | NUR ---
FROM ER TO ROOM 272, VIA WC ACCOMPANIED BY ELINA, RN. TRANSFERRED TO BED WITH MINIMAL ASSISTANCE, USES WALKER OR CANE AT HOME WHEN NEEDED, PATIENT STATED. ALERT AND ORIENTED X4, MILD HEADACHE REPORTED, NO S/S OF DISTRESS NOTED, PATIENT IS FORGETFUL, UNABLE TO PROVIDED MEDICAL HX AND HOME MEDS, STATES "MY SON IS DIABETIC, I AM NOT." "I DON'T TAKE ANY INSULIN AT HOME." BEDSIDE COMMODE IS WITHIN REACH, BED ALARM ON. EXPLAINED CALL LION SYSTEM, PATIENT DEMOSTRATED HOW TO USE CALL LION, WILL FOLLOW UP WITH HOURLY ROUNDINGS.
[2021-10-13 22:19] VITALS: BP 156/59
--- NOTE | 2021-10-13 23:00 | NUR ---
IV FLUIDS INFUSING TO PATENT IV SITE, NO S/S OF INFILTRATION, WILL MONITOR CLOSELY, PATEINT IS VERY PLEASANT AND TALKACTIVE, BREATHING TX GIVEN BY RT.
[2021-10-14 00:18] VITALS: BP 113/56
--- NOTE | 2021-10-14 01:43 | NUR ---
RESTING IN BED WITH EYES CLOSED, NO PAIN OR NEEDS REPORTED WILL FOLLOW UP CLOSELY. CALL LION AT REACH.
[2021-10-14 04:49] VITALS: BP 131/53
--- NOTE | 2021-10-14 05:20 | NUR ---
RESTING IN BED WITH EYES CLOSED, NO NEEDS VOICED, CALL LION AT REACH, BED ALARM IN ON, WILL FOLLOW UP CLOSELY. A&OX3, FORGETFUL.
[2021-10-14 05:49] LABS: HEMATOCRIT 30.7 % (37.0-47.0); HEMOGLOBIN 9.5 g/dl (12.0-16.0); MEAN CELL VOLUME 94.2 fL CALC (80.0-100.0); MEAN CORPUSCULAR HGB 29.1 pG CALC (26.0-32.0); MEAN CORPUSCULAR HGB CONC 30.9 g/dL CAL (32.0-36.0); RED BLOOD COUNT 3.26 mill/uL (4.20-5.60); RED CELL DISTRI WIDTH 13.8 % (11.5-15.5)
[2021-10-14 06:10] LABS: ANION GAP 7 (6-22 (CALC)); BUN 9 mg/dL (8-23); BUN/CREATININE RATIO 16 (12-20 (CALC)); CARBON DIOXIDE 27 mmol/l (22-30); CHLORIDE 104 mmol/l (95-108); CREATININE 0.5 mg/dL (0.5-1.0); GFR > 60 ML/MIN (>=60 (CALC)); GFR FOR AFR.AMER. > 60 ML/MIN (>=60 (CALC)); MAGNESIUM 1.7 mg/dL (1.6-2.3); POTASSIUM 3.9 mmol/l (3.5-5.1); SODIUM 135 mmol/l (137-146)
--- NOTE | 2021-10-14 07:00 | NUR ---
REPORT GIVEN TO DAYSHIFT NURSE VIA SBAR FORMAT. PT IS STABLE.
[2021-10-14 07:27] VITALS: BP 154/59
--- NOTE | 2021-10-14 08:00 | NUR ---
ASSESSMENT DONE. PATIENT IS ALERT AND ORIENT X3 BUT FORGETFUL AT TIMES. PATIENT DENIES PAIN. O2 AT 2L VIA NC AND PATIENT SATS 94%-95%. TELE IN PLACE. PATIENT DENIES NEEDS. SAFETY PRECAUTIONS REINFROCED AND CALL LIGHT IN REACH. BED ALARM IN PLACE.
[2021-10-14 10:58] VITALS: BP 127/70
[2021-10-14] MEDS ORDERED: PREDNISONE10 MG PO (11:14)
[2021-10-14] MEDS ORDERED: DOXYCYCL HYC100 M4 PO (11:15)
--- NOTE | 2021-10-14 12:30 | NUR ---
PATIENT IS RESTING IN BED WITH NO DISTRESS NOTED. PATIENT DENIES NEEDS AT THIS TIME. CALL LIGHT IN REACH.
--- NOTE | 2021-10-14 16:02 | NUR ---
Discharge instructions given. Patient verbalizes understanding of same. Discharged in stable condition via Wheelchair to Home with staff. All belongings sent with pt.
--- NOTE | 2021-10-17 16:00 | NUR ---
Sputum culture is growing K.Pneumoniae. dc doxy and start augmentin 875mg bid x 7days per Dr. Pérez. Patient was contacted via phone and understands new order and will poultry picker mew RX from [facility]. RX moore to [facility] at 1600 10/17/21
== END 2021-10-14 16:02 | disposition home health service (06) ==
LOC: ED 18:09 → ED-I 20:32 → ED 21:26 → MS2 21:27
PROVIDERS: Emergency Medicine; ADMIT Hospitalist; ATTEND Hospitalist
DX: J18.9 Pneumonia, unspecified organism (principal); J44.0 Chronic obstructive pulmonary disease with (acute) lower respiratory infection; J44.1 Chronic obstructive pulmonary disease with (acute) exacerbation; I95.9 Hypotension, unspecified; I10 Essential (primary) hypertension; I25.10 Atherosclerotic heart disease of native coronary artery without angina pectoris; I48.91 Unspecified atrial fibrillation; I73.9 Peripheral vascular disease, unspecified; K21.9 Gastro-esophageal reflux disease without esophagitis; F41.9 Anxiety disorder, unspecified; F32.A Depression, unspecified; Z99.81 Dependence on supplemental oxygen; Z95.820 Peripheral vascular angioplasty status with implants and grafts; Z20.822 Contact with and (suspected) exposure to COVID-19
CPT/HCPCS: J1650

== ENCOUNTER 2021-11-08 10:40 | Emergency (ER) | payer MEDICARE, MEDICAID ==
[~2021-11-08 10:40] MED LIST changes: +DOXYCYCL HYC100 M4 PO
== END 2021-11-08 11:30 | disposition left against medical advice (07) ==
LOC: ED 10:40 → LWOBS 11:29
DX: Z53.21 Procedure and treatment not carried out due to patient leaving prior to being seen by health care provider (principal)

== ENCOUNTER 2022-07-20 12:00 | Observation (INO) | payer MEDICARE, MEDICAID ==
[2022-07-20] VITALS (29 sets, daily range): BP systolic 113–156; BP diastolic 44–68
[~2022-07-20] VITALS: Ht 154.9 cm; Wt 42.3 kg
[2022-07-20 12:50] LABS: HEMATOCRIT 37.3 % (37.0-47.0); HEMOGLOBIN 11.8 g/dl (12.0-16.0); IMMATURE GRANULOCYTES 0.1 % (0.0-5.0); MEAN CELL VOLUME 93.3 fL CALC (80.0-100.0); MEAN CORPUSCULAR HGB 29.5 pG CALC (26.0-32.0); MEAN CORPUSCULAR HGB CONC 31.6 g/dL CAL (32.0-36.0); NEUT# 6.68 thou/uL (2.00-7.15); RED CELL DISTRI WIDTH 14.2 % (11.5-15.5)
[2022-07-20 12:58] LABS: ALBUMIN 4.4 g/dL (3.2-5.0); ALKALINE PHOSPHATASE 79 u/l (38-126); ANION GAP 15 (6-22 (CALC)); BILIRUBIN, TOTAL 0.3 mg/dL (0.0-1.4); BUN 24 mg/dL (8-23); BUN/CREATININE RATIO 33 (12-20 (CALC)); CARBON DIOXIDE 26 mmol/l (22-30); CHLORIDE 98 mmol/l (95-108); CREATININE 0.7 mg/dL (0.5-1.0); GFR FOR AFR.AMER. > 60 ML/MIN (>=60 (CALC)); GFR OTHER RACES > 60 ML/MIN (>=60 (CALC)); POTASSIUM 4.3 mmol/l (3.5-5.1); SGOT/AST 35 u/l (9-36); SODIUM 135 mmol/l (137-146); TOTAL PROTEIN 8.5 g/dL (6.3-8.2)
[2022-07-21 00:11] VITALS: BP 144/50
[2022-07-21 03:55] VITALS: BP 156/53
[2022-07-21 05:45] LABS: HEMATOCRIT 36.1 % (37.0-47.0); HEMOGLOBIN 11.6 g/dl (12.0-16.0); MEAN CELL VOLUME 93.8 fL CALC (80.0-100.0); MEAN CORPUSCULAR HGB 30.1 pG CALC (26.0-32.0); MEAN CORPUSCULAR HGB CONC 32.1 g/dL CAL (32.0-36.0); RED BLOOD COUNT 3.85 mill/uL (4.20-5.60); RED CELL DISTRI WIDTH 14.1 % (11.5-15.5)
[2022-07-21 06:12] LABS: ANION GAP 15 (6-22 (CALC)); BUN 21 mg/dL (8-23); BUN/CREATININE RATIO 28 (12-20 (CALC)); CARBON DIOXIDE 29 mmol/l (22-30); CHLORIDE 99 mmol/l (95-108); CREATININE 0.7 mg/dL (0.5-1.0); GFR FOR AFR.AMER. > 60 ML/MIN (>=60 (CALC)); GFR OTHER RACES > 60 ML/MIN (>=60 (CALC)); SODIUM 138 mmol/l (137-146)
[2022-07-21 06:21] LABS: POTASSIUM 5.2 mmol/l (3.5-5.1)
[2022-07-21 06:34] VITALS: BP 171/59
[2022-07-21 16:22] VITALS: BP 162/48
[2022-07-21 19:00] VITALS: BP 152/55
[2022-07-21 19:05] VITALS: BP 152/55
[2022-07-22 00:27] VITALS: BP 153/53
[2022-07-22 04:00] VITALS: BP 149/53
[2022-07-22 06:19] LABS: BUN 21 mg/dL (8-23); BUN/CREATININE RATIO 27 (12-20 (CALC)); CARBON DIOXIDE 28 mmol/l (22-30); CHLORIDE 94 mmol/l (95-108); CREATININE 0.8 mg/dL (0.5-1.0); GFR FOR AFR.AMER. > 60 ML/MIN (>=60 (CALC)); GFR OTHER RACES > 60 ML/MIN (>=60 (CALC)); POTASSIUM 4.5 mmol/l (3.5-5.1)
[2022-07-22 06:21] LABS: ANION GAP 12 (6-22 (CALC)); SODIUM 129 mmol/l (137-146)
[2022-07-22 06:36] VITALS: BP 175/56
[2022-07-22] MEDS ORDERED: PREDNISONE10 MG PO (11:14)
[2022-07-22] MEDS ORDERED: LEVOFLOXACIN500MG PO (11:15)
[2022-07-22 11:34] VITALS: BP 159/51
[2022-07-22 16:45] VITALS: BP 159/55
== END 2022-07-22 17:00 | disposition home or self-care (01) ==
LOC: ED 12:00 → ED-I 12:16 → ED 12:16 → ED-I 15:44 → ED 17:47 → MS2 17:48
PROVIDERS: Family Medicine; Nurse Practitioner; ADMIT Internal Medicine; ATTEND Internal Medicine
DX: J44.1 Chronic obstructive pulmonary disease with (acute) exacerbation (principal); J96.11 Chronic respiratory failure with hypoxia; E87.1 Hypo-osmolality and hyponatremia; E87.5 Hyperkalemia; I10 Essential (primary) hypertension; I48.91 Unspecified atrial fibrillation; I25.10 Atherosclerotic heart disease of native coronary artery without angina pectoris; I73.9 Peripheral vascular disease, unspecified; R91.8 Other nonspecific abnormal finding of lung field; F32.A Depression, unspecified; F41.9 Anxiety disorder, unspecified; Z59.1 Inadequate housing; Z87.891 Personal history of nicotine dependence; Z99.81 Dependence on supplemental oxygen; Z95.820 Peripheral vascular angioplasty status with implants and grafts; Z20.822 Contact with and (suspected) exposure to COVID-19
CPT/HCPCS: J1650; Q9967

== ENCOUNTER 2022-09-04 09:44 | Emergency (ER) | payer MEDICARE, MEDICAID ==
[2022-09-04] VITALS (18 sets, daily range): BP systolic 101–140; BP diastolic 53–69
[~2022-09-04] VITALS: Ht 154.9 cm; Wt 43.1 kg
[~2022-09-04 09:44] MED LIST changes: +LEVOFLOXACIN500MG PO
[2022-09-04 10:25] LABS: ALKALINE PHOSPHATASE 94 u/l (38-126); BILIRUBIN, TOTAL 0.4 mg/dL (0.0-1.4); BUN 16 mg/dL (8-23); BUN/CREATININE RATIO 20 (12-20 (CALC)); CARBON DIOXIDE 29 mmol/l (22-30); CHLORIDE 87 mmol/l (95-108); CREATININE 0.8 mg/dL (0.5-1.0); GFR FOR AFR.AMER. > 60 ML/MIN (>=60 (CALC)); GFR OTHER RACES > 60 ML/MIN (>=60 (CALC)); POTASSIUM 4.2 mmol/l (3.5-5.1); SGOT/AST 38 u/l (9-36); TOTAL PROTEIN 7.6 g/dL (6.3-8.2)
[2022-09-04 10:26] LABS: HEMATOCRIT 34.1 % (37.0-47.0); IMMATURE GRANULOCYTES 0.2 % (0.0-5.0); MEAN CELL VOLUME 92.4 fL CALC (80.0-100.0); MEAN CORPUSCULAR HGB 29.8 pG CALC (26.0-32.0); MEAN CORPUSCULAR HGB CONC 32.3 g/dL CAL (32.0-36.0); PLATELET COUNT 192 thou/uL (130-400); RED BLOOD COUNT 3.69 mill/uL (4.20-5.60); RED CELL DISTRI WIDTH 13.1 % (11.5-15.5)
[2022-09-04 10:27] LABS: MANUAL DIFFERENTIAL YES
[2022-09-04 10:51] LABS: ANION GAP 8 (6-22 (CALC)); SODIUM 120 mmol/l (137-146)
== END 2022-09-04 14:23 | disposition short-term general hospital (02) ==
LOC: ED 09:44
PROVIDERS: Family Medicine
DX: J43.9 Emphysema, unspecified (principal); J18.9 Pneumonia, unspecified organism; E87.1 Hypo-osmolality and hyponatremia; D72.829 Elevated white blood cell count, unspecified; D72.820 Lymphocytosis (symptomatic); I10 Essential (primary) hypertension; I25.10 Atherosclerotic heart disease of native coronary artery without angina pectoris; Z87.891 Personal history of nicotine dependence; Z95.5 Presence of coronary angioplasty implant and graft; Z99.81 Dependence on supplemental oxygen; Z20.822 Contact with and (suspected) exposure to COVID-19
CPT/HCPCS: Q9967

== ENCOUNTER 2022-09-08 23:23 | Inpatient (IN) | payer MEDICARE, MEDICAID ==
[~2022-09-08] VITALS: Ht 154.9 cm; Wt 46.8 kg
[2022-09-08 23:32] VITALS: BP 110/50
[2022-09-08 23:45] VITALS: BP 103/48
[2022-09-09] VITALS (37 sets, daily range): BP systolic 92–158; BP diastolic 45–66
[2022-09-09 00:04] LABS: HEMATOCRIT 34.7 % (37.0-47.0); HEMOGLOBIN 10.9 g/dl (12.0-16.0); IMMATURE GRANULOCYTES 0.3 % (0.0-5.0); MANUAL DIFFERENTIAL YES; MEAN CELL VOLUME 94.8 fL CALC (80.0-100.0); MEAN CORPUSCULAR HGB 29.8 pG CALC (26.0-32.0); MEAN CORPUSCULAR HGB CONC 31.4 g/dL CAL (32.0-36.0); PLATELET COUNT 185 thou/uL (130-400); RED BLOOD COUNT 3.66 mill/uL (4.20-5.60); RED CELL DISTRI WIDTH 13.7 % (11.5-15.5)
[2022-09-09 00:16] LABS: ALBUMIN 3.4 g/dL (3.2-5.0); ALKALINE PHOSPHATASE 89 u/l (38-126); BILIRUBIN, TOTAL 0.3 mg/dL (0.0-1.4); CARBON DIOXIDE 32 mmol/l (22-30); CHLORIDE 91 mmol/l (95-108); CREATININE 1.4 mg/dL (0.5-1.0); GFR FOR AFR.AMER. 44 ML/MIN (>=60 (CALC)); GFR OTHER RACES 36 ML/MIN (>=60 (CALC)); POTASSIUM 4.2 mmol/l (3.5-5.1); SGOT/AST 35 u/l (9-36); TOTAL PROTEIN 6.9 g/dL (6.3-8.2)
[2022-09-09 00:28] LABS: MYOGLOBIN 101 ng/mL (0 - 62)
[2022-09-09 00:29] LABS: ANION GAP 8 (6-22 (CALC)); BUN 39 mg/dL (8-23); BUN/CREATININE RATIO 28 (12-20 (CALC)); SODIUM 127 mmol/l (137-146)
[2022-09-09 00:40] LABS: BAND 3 % (0-8)
[2022-09-09] MEDS ORDERED: METOPROL TAR25 MG PO (03:21)
[2022-09-09] MEDS ORDERED: AZITHROMYCIN1 GM PO (03:29)
[2022-09-09] MEDS ORDERED: CEFPODOXIME PR200 MG PO (03:34)
[2022-09-10] VITALS (25 sets, daily range): BP systolic 122–179; BP diastolic 44–105
[2022-09-10 02:33] LABS: URINE BILIRUBIN - DIPSTICK NEGATIVE (NEGATIVE); URINE BLOOD DIPSTICK NEGATIVE (NEGATIVE); URINE COLOR YELLOW; URINE GLUCOSE - DIPSTICK NEGATIVE (NEGATIVE); URINE KETONE NEGATIVE (NEGATIVE); URINE LEUK ESTERASE NEGATIVE (NEGATIVE); URINE NITRITE - DIPSTICK NEGATIVE (Negative); URINE PH 5.5 (4.5-8.0); URINE PROTEIN - DIPSTICK NEGATIVE (NEG-TRACE); URINE SPECIFIC GRAVITY 1.025; URINE UROBILINOGEN - DIPSTICK 0.2 E.U./dL (0.2)
[2022-09-10 05:25] LABS: HEMATOCRIT 32.1 % (37.0-47.0); HEMOGLOBIN 10.1 g/dl (12.0-16.0); MEAN CELL VOLUME 95.5 fL CALC (80.0-100.0); MEAN CORPUSCULAR HGB 30.1 pG CALC (26.0-32.0); MEAN CORPUSCULAR HGB CONC 31.5 g/dL CAL (32.0-36.0); RED BLOOD COUNT 3.36 mill/uL (4.20-5.60); RED CELL DISTRI WIDTH 13.6 % (11.5-15.5)
[2022-09-10 05:37] LABS: ANION GAP 7 (6-22 (CALC)); BUN 33 mg/dL (8-23); BUN/CREATININE RATIO 47 (12-20 (CALC)); CARBON DIOXIDE 29 mmol/l (22-30); CHLORIDE 103 mmol/l (95-108); CREATININE 0.7 mg/dL (0.5-1.0); GFR FOR AFR.AMER. > 60 ML/MIN (>=60 (CALC)); GFR OTHER RACES > 60 ML/MIN (>=60 (CALC)); MAGNESIUM 2.4 mg/dL (1.6-2.3); POTASSIUM 4.7 mmol/l (3.5-5.1); SODIUM 134 mmol/l (137-146)
[2022-09-11] VITALS (26 sets, daily range): BP systolic 147–202; BP diastolic 52–144
[2022-09-11 05:24] LABS: HEMATOCRIT 29.1 % (37.0-47.0); HEMOGLOBIN 9.2 g/dl (12.0-16.0); MEAN CORPUSCULAR HGB 30.4 pG CALC (26.0-32.0); MEAN CORPUSCULAR HGB CONC 31.6 g/dL CAL (32.0-36.0); RED BLOOD COUNT 3.03 mill/uL (4.20-5.60); RED CELL DISTRI WIDTH 13.6 % (11.5-15.5)
[2022-09-11 05:56] LABS: ANION GAP 7 (6-22 (CALC)); BUN 15 mg/dL (8-23); BUN/CREATININE RATIO 32 (12-20 (CALC)); CARBON DIOXIDE 29 mmol/l (22-30); CHLORIDE 104 mmol/l (95-108); CREATININE 0.5 mg/dL (0.5-1.0); GFR FOR AFR.AMER. > 60 ML/MIN (>=60 (CALC)); GFR OTHER RACES > 60 ML/MIN (>=60 (CALC)); MAGNESIUM 1.9 mg/dL (1.6-2.3); POTASSIUM 4.9 mmol/l (3.5-5.1); SODIUM 135 mmol/l (137-146)
[2022-09-12] VITALS (11 sets, daily range): BP systolic 125–172; BP diastolic 51–79
[2022-09-12 05:06] LABS: HEMATOCRIT 32.1 % (37.0-47.0); HEMOGLOBIN 10.3 g/dl (12.0-16.0); MEAN CELL VOLUME 94.1 fL CALC (80.0-100.0); MEAN CORPUSCULAR HGB 30.2 pG CALC (26.0-32.0); MEAN CORPUSCULAR HGB CONC 32.1 g/dL CAL (32.0-36.0); RED BLOOD COUNT 3.41 mill/uL (4.20-5.60); RED CELL DISTRI WIDTH 13.1 % (11.5-15.5)
[2022-09-12 05:30] LABS: ANION GAP 4 (6-22 (CALC)); BUN 14 mg/dL (8-23); BUN/CREATININE RATIO 34 (12-20 (CALC)); CHLORIDE 97 mmol/l (95-108); CREATININE 0.4 mg/dL (0.5-1.0); GFR FOR AFR.AMER. > 60 ML/MIN (>=60 (CALC)); GFR OTHER RACES > 60 ML/MIN (>=60 (CALC)); POTASSIUM 4.6 mmol/l (3.5-5.1); SODIUM 131 mmol/l (137-146)
[2022-09-12 05:42] LABS: CARBON DIOXIDE 35 mmol/l (22-30)
[2022-09-12] MEDS ORDERED: LEVAQUIN750 M1 PO (09:04)
[2022-09-12] MEDS ORDERED: PREDNISONE10 MG PO (09:04)
== END 2022-09-12 11:08 | disposition home or self-care (01) | DRG 177 ==
LOC: ED 23:23 → ICU 09-09 02:29
PROVIDERS: Family Medicine; ADMIT Internal Medicine; ATTEND Internal Medicine
PROC: 0T9B70Z Drainage of Bladder with Drainage Device, Via Natural or Artificial Opening (ICD-10-PCS; principal; 2022-09-09)
PROC: 5A09357 Assistance with Respiratory Ventilation, Less than 24 Consecutive Hours, Continuous Positive Airway Pressure (ICD-10-PCS; 2022-09-09)
DX: J15.8 Pneumonia due to other specified bacteria (principal); J96.21 Acute and chronic respiratory failure with hypoxia; J96.22 Acute and chronic respiratory failure with hypercapnia; E87.1 Hypo-osmolality and hyponatremia; C91.10 Chronic lymphocytic leukemia of B-cell type not having achieved remission; N17.9 Acute kidney failure, unspecified; J44.1 Chronic obstructive pulmonary disease with (acute) exacerbation; J44.0 Chronic obstructive pulmonary disease with (acute) lower respiratory infection; I10 Essential (primary) hypertension; I48.91 Unspecified atrial fibrillation; I25.10 Atherosclerotic heart disease of native coronary artery without angina pectoris; I73.9 Peripheral vascular disease, unspecified; G89.29 Other chronic pain; K21.9 Gastro-esophageal reflux disease without esophagitis; F41.9 Anxiety disorder, unspecified; F32.A Depression, unspecified; Y95 Nosocomial condition; Z99.81 Dependence on supplemental oxygen; Z95.820 Peripheral vascular angioplasty status with implants and grafts; Z20.822 Contact with and (suspected) exposure to COVID-19
CPT/HCPCS: J0692; J1650

== ENCOUNTER 2023-01-27 22:44 | Inpatient (IN) | payer MEDICARE, MEDICAID ==
[~2023-01-27] VITALS: Ht 154.9 cm; Wt 43.0 kg
[~2023-01-27 22:44] MED LIST changes: +AZITHROMYCIN1 GM PO; +CEFPODOXIME PR200 MG PO; +LEVAQUIN750 M1 PO; +METOPROL TAR25 MG PO
[2023-01-27 22:57] VITALS: BP 163/64
[2023-01-27 23:01] VITALS: BP 156/66
[2023-01-27 23:15] VITALS: BP 138/64
[2023-01-27 23:30] VITALS: BP 125/61
[2023-01-27 23:46] VITALS: BP 118/60
[2023-01-27 23:50] LABS: ALBUMIN 3.9 g/dL (3.2-5.0); ALKALINE PHOSPHATASE 99 u/l (38-126); ANION GAP 13 (6-22 (CALC)); BUN 17 mg/dL (8-23); BUN/CREATININE RATIO 22 (12-20 (CALC)); CARBON DIOXIDE 30 mmol/l (22-30); CHLORIDE 94 mmol/l (95-108); CREATININE 0.8 mg/dL (0.5-1.0); GFR FOR AFR.AMER. > 60 ML/MIN (>=60 (CALC)); GFR OTHER RACES > 60 ML/MIN (>=60 (CALC)); POTASSIUM 4.9 mmol/l (3.5-5.1); SGOT/AST 48 u/l (9-36); SODIUM 131 mmol/l (137-146)
[2023-01-27 23:53] LABS: BILIRUBIN, TOTAL 0.2 mg/dL (0.02-1.3)
[2023-01-27 23:57] LABS: HEMATOCRIT 34.2 % (37.0-47.0); HEMOGLOBIN 10.3 g/dl (12.0-16.0); IMMATURE GRANULOCYTES 0.4 % (0.0-5.0); MEAN CELL VOLUME 90.2 fL CALC (80.0-100.0); MEAN CORPUSCULAR HGB 27.2 pG CALC (26.0-32.0); MEAN CORPUSCULAR HGB CONC 30.1 g/dL CAL (32.0-36.0); RED BLOOD COUNT 3.79 mill/uL (4.20-5.60); RED CELL DISTRI WIDTH 15.1 % (11.5-15.5)
[2023-01-28] VITALS (31 sets, daily range): BP systolic 105–163; BP diastolic 45–69
[2023-01-28] LABS: PLATELET COUNT 244 thou/uL (130-400)
[2023-01-28 00:01] LABS: MANUAL DIFFERENTIAL YES
[2023-01-28 00:08] LABS: BAND 2 % (0-8)
[2023-01-28 09:33] LABS: URINE BILIRUBIN - DIPSTICK NEGATIVE (NEGATIVE); URINE BLOOD DIPSTICK NEGATIVE (NEGATIVE); URINE COLOR YELLOW; URINE GLUCOSE - DIPSTICK NEGATIVE (NEGATIVE); URINE KETONE NEGATIVE (NEGATIVE); URINE LEUK ESTERASE NEGATIVE (NEGATIVE); URINE PROTEIN - DIPSTICK NEGATIVE (NEG-TRACE); URINE UROBILINOGEN - DIPSTICK 0.2 E.U./dL (0.2)
[2023-01-28 09:37] LABS: URINE NITRITE - DIPSTICK NEGATIVE (Negative)
[2023-01-29] VITALS (25 sets, daily range): BP systolic 127–188; BP diastolic 53–80
[2023-01-29 05:26] LABS: MEAN CELL VOLUME 87.6 fL CALC (80.0-100.0); MEAN CORPUSCULAR HGB 27.8 pG CALC (26.0-32.0); MEAN CORPUSCULAR HGB CONC 31.8 g/dL CAL (32.0-36.0); RED BLOOD COUNT 2.91 mill/uL (4.20-5.60)
[2023-01-29 05:37] LABS: ALBUMIN 3.3 g/dL (3.2-5.0); ALKALINE PHOSPHATASE 66 u/l (38-126); BILIRUBIN, TOTAL 0.2 mg/dL (0.02-1.3); BUN 20 mg/dL (8-23); BUN/CREATININE RATIO 38 (12-20 (CALC)); CARBON DIOXIDE 29 mmol/l (22-30); CHLORIDE 90 mmol/l (95-108); CREATININE 0.5 mg/dL (0.5-1.0); GFR FOR AFR.AMER. > 60 ML/MIN (>=60 (CALC)); GFR OTHER RACES > 60 ML/MIN (>=60 (CALC)); HEMATOCRIT 25.5 % (37.0-47.0); HEMOGLOBIN 8.1 g/dl (12.0-16.0); SGOT/AST 46 u/l (9-36); TOTAL PROTEIN 7.2 g/dL (6.3-8.2)
[2023-01-29 05:40] LABS: ANION GAP 9 (6-22 (CALC)); SODIUM 123 mmol/l (137-146)
[2023-01-29 05:41] LABS: POTASSIUM 5.3 mmol/l (3.5-5.1)
[2023-01-30] VITALS (18 sets, daily range): BP systolic 81–190; BP diastolic 49–90
[2023-01-30 05:12] LABS: BASO% 0.1 % (0-3); HEMATOCRIT 30.9 % (37.0-47.0); HEMOGLOBIN 9.5 g/dl (12.0-16.0); IMMATURE GRANULOCYTES 0.8 % (0.0-5.0); LYMPH% 56.2 % (15-41); MEAN CELL VOLUME 88.5 fL CALC (80.0-100.0); MEAN CORPUSCULAR HGB 27.2 pG CALC (26.0-32.0); MEAN CORPUSCULAR HGB CONC 30.7 g/dL CAL (32.0-36.0); MONO% 2.6 % (2-13); NEUT# 10.39 thou/uL (2.00-7.15); NEUT% 40.3 % (42-76); RED BLOOD COUNT 3.49 mill/uL (4.20-5.60); RED CELL DISTRI WIDTH 14.9 % (11.5-15.5)
[2023-01-30 05:27] LABS: ALBUMIN 3.6 g/dL (3.2-5.0); ALKALINE PHOSPHATASE 78 u/l (38-126); ANION GAP 15 (6-22 (CALC)); BILIRUBIN, TOTAL 0.2 mg/dL (0.02-1.3); BUN 16 mg/dL (8-23); BUN/CREATININE RATIO 23 (12-20 (CALC)); CARBON DIOXIDE 28 mmol/l (22-30); CHLORIDE 89 mmol/l (95-108); CREATININE 0.7 mg/dL (0.5-1.0); GFR FOR AFR.AMER. > 60 ML/MIN (>=60 (CALC)); GFR OTHER RACES > 60 ML/MIN (>=60 (CALC)); MAGNESIUM 2.1 mg/dL (1.6-2.3); SGOT/AST 52 u/l (9-36); SODIUM 126 mmol/l (137-146); TOTAL PROTEIN 7.3 g/dL (6.3-8.2)
[2023-01-30 05:30] LABS: POTASSIUM 5.5 mmol/l (3.5-5.1)
[2023-01-31] VITALS: BP 166/65
[2023-01-31 03:57] VITALS: BP 156/62
[2023-01-31 04:00] VITALS: BP 156/62
[2023-01-31 05:49] LABS: HEMATOCRIT 28.7 % (37.0-47.0); HEMOGLOBIN 9.2 g/dl (12.0-16.0); MEAN CELL VOLUME 86.7 fL CALC (80.0-100.0); MEAN CORPUSCULAR HGB 27.8 pG CALC (26.0-32.0); MEAN CORPUSCULAR HGB CONC 32.1 g/dL CAL (32.0-36.0); RED BLOOD COUNT 3.31 mill/uL (4.20-5.60); RED CELL DISTRI WIDTH 14.8 % (11.5-15.5)
[2023-01-31 06:07] LABS: ALBUMIN 3.3 g/dL (3.2-5.0); ALKALINE PHOSPHATASE 66 u/l (38-126); ANION GAP 11 (6-22 (CALC)); BUN 14 mg/dL (8-23); BUN/CREATININE RATIO 23 (12-20 (CALC)); CARBON DIOXIDE 28 mmol/l (22-30); CHLORIDE 92 mmol/l (95-108); CREATININE 0.6 mg/dL (0.5-1.0); GFR FOR AFR.AMER. > 60 ML/MIN (>=60 (CALC)); GFR OTHER RACES > 60 ML/MIN (>=60 (CALC)); MAGNESIUM 1.9 mg/dL (1.6-2.3); POTASSIUM 4.7 mmol/l (3.5-5.1); SGOT/AST 31 u/l (9-36); SODIUM 126 mmol/l (137-146); TOTAL PROTEIN 6.6 g/dL (6.3-8.2)
[2023-01-31 06:46] VITALS: BP 179/73
[2023-01-31 07:48] VITALS: BP 109/72
[2023-01-31 10:37] VITALS: BP 162/55
[2023-01-31] MEDS ORDERED: PREDNISONE10 MG PO ×2 (10:58→11:04)
[2023-01-31] MEDS ORDERED: ZPAK PO (10:59)
== END 2023-01-31 12:28 | disposition home or self-care (01) | DRG 190 ==
LOC: ED 22:44 → ED-I 01-28 00:01 → ED 01-28 00:35 → ICU 01-28 00:36 → MS2 01-30 12:25
PROVIDERS: Emergency Medicine; Nurse Practitioner Family; ADMIT Internal Medicine; ATTEND Internal Medicine
PROC: 5A09357 Assistance with Respiratory Ventilation, Less than 24 Consecutive Hours, Continuous Positive Airway Pressure (ICD-10-PCS; principal; 2023-01-28)
DX: J44.1 Chronic obstructive pulmonary disease with (acute) exacerbation (principal); J18.9 Pneumonia, unspecified organism; J96.21 Acute and chronic respiratory failure with hypoxia; J96.22 Acute and chronic respiratory failure with hypercapnia; E87.1 Hypo-osmolality and hyponatremia; J44.0 Chronic obstructive pulmonary disease with (acute) lower respiratory infection; I10 Essential (primary) hypertension; I25.10 Atherosclerotic heart disease of native coronary artery without angina pectoris; I48.91 Unspecified atrial fibrillation; D72.829 Elevated white blood cell count, unspecified; D72.820 Lymphocytosis (symptomatic); I73.9 Peripheral vascular disease, unspecified; F41.9 Anxiety disorder, unspecified; F32.A Depression, unspecified; K21.9 Gastro-esophageal reflux disease without esophagitis; Z99.81 Dependence on supplemental oxygen; Z20.822 Contact with and (suspected) exposure to COVID-19; Z87.01 Personal history of pneumonia (recurrent)
CPT/HCPCS: J1650

== ENCOUNTER 2023-02-02 08:18 | Emergency (ER) | payer MEDICARE, MEDICAID ==
[~2023-02-02] VITALS: Ht 154.9 cm; Wt 41.0 kg
[2023-02-02] VITALS (9 sets, daily range): BP systolic 136–186; BP diastolic 66–92
[2023-02-02 09:59] LABS: BASO% 0.1 % (0-3); IMMATURE GRANULOCYTES 0.2 % (0.0-5.0); MEAN CELL VOLUME 90.1 fL CALC (80.0-100.0); MEAN CORPUSCULAR HGB 27.7 pG CALC (26.0-32.0); MEAN CORPUSCULAR HGB CONC 30.8 g/dL CAL (32.0-36.0); MONO% 1.1 % (2-13); NEUT# 10.74 thou/uL (2.00-7.15); NEUT% 38.5 % (42-76); RED BLOOD COUNT 4.83 mill/uL (4.20-5.60); RED CELL DISTRI WIDTH 15.2 % (11.5-15.5)
[2023-02-02 10:07] LABS: ALKALINE PHOSPHATASE 92 u/l (38-126); BUN 12 mg/dL (8-23); BUN/CREATININE RATIO 21 (12-20 (CALC)); CARBON DIOXIDE 23 mmol/l (22-30); CHLORIDE 100 mmol/l (95-108); CREATININE 0.6 mg/dL (0.5-1.0); GFR FOR AFR.AMER. > 60 ML/MIN (>=60 (CALC)); GFR OTHER RACES > 60 ML/MIN (>=60 (CALC)); SGOT/AST 37 u/l (9-36)
[2023-02-02 10:10] LABS: ALBUMIN 4.2 g/dL (3.2-5.0); ANION GAP 15 (6-22 (CALC)); BILIRUBIN, TOTAL 0.4 mg/dL (0.02-1.3); POTASSIUM 5.3 mmol/l (3.5-5.1); SODIUM 133 mmol/l (137-146); TOTAL PROTEIN 8.4 g/dL (6.3-8.2)
[2023-02-02 10:14] LABS: HEMATOCRIT 43.5 % (37.0-47.0); HEMOGLOBIN 13.4 g/dl (12.0-16.0)
[2023-02-02 10:15] LABS: LYMPH% 60.1 % (15-41)
[2023-02-02 10:37] LABS: URINE BILIRUBIN - DIPSTICK NEGATIVE (NEGATIVE); URINE BLOOD DIPSTICK NEGATIVE (NEGATIVE); URINE COLOR YELLOW; URINE GLUCOSE - DIPSTICK NEGATIVE (NEGATIVE); URINE KETONE NEGATIVE (NEGATIVE); URINE LEUK ESTERASE NEGATIVE (NEGATIVE); URINE PROTEIN - DIPSTICK NEGATIVE (NEG-TRACE); URINE SPECIFIC GRAVITY <=1.005; URINE UROBILINOGEN - DIPSTICK 0.2 E.U./dL (0.2)
[2023-02-02 10:38] LABS: URINE NITRITE - DIPSTICK NEGATIVE (Negative)
== END 2023-02-02 13:18 | disposition home or self-care (01) ==
LOC: ED 08:18
PROVIDERS: Family Medicine
DX: R40.0 Somnolence (principal); I10 Essential (primary) hypertension; J43.9 Emphysema, unspecified; I48.91 Unspecified atrial fibrillation; I25.10 Atherosclerotic heart disease of native coronary artery without angina pectoris; I73.9 Peripheral vascular disease, unspecified; F32.A Depression, unspecified; K21.9 Gastro-esophageal reflux disease without esophagitis; F41.9 Anxiety disorder, unspecified; C91.10 Chronic lymphocytic leukemia of B-cell type not having achieved remission; Z99.81 Dependence on supplemental oxygen

== ENCOUNTER 2023-02-19 21:43 | Emergency (ER) | payer MEDICARE, MEDICAID ==
[~2023-02-19] VITALS: Ht 154.9 cm; Wt 44.0 kg
[2023-02-19] VITALS (9 sets, daily range): BP systolic 89–127; BP diastolic 40–48
[2023-02-19 22:36] LABS: BASO% 0.1 % (0-3); EOS% 0.1 % (0-8); HEMOGLOBIN 9.5 g/dl (12.0-16.0); IMMATURE GRANULOCYTES 0.2 % (0.0-5.0); LYMPH% 50.8 % (15-41); MEAN CELL VOLUME 87.6 fL CALC (80.0-100.0); MEAN CORPUSCULAR HGB 27.5 pG CALC (26.0-32.0); MEAN CORPUSCULAR HGB CONC 31.4 g/dL CAL (32.0-36.0); MONO% 9.6 % (2-13); NEUT# 11.55 thou/uL (2.00-7.15); NEUT% 39.2 % (42-76); RED BLOOD COUNT 3.46 mill/uL (4.20-5.60); RED CELL DISTRI WIDTH 15.7 % (11.5-15.5)
[2023-02-19 22:38] LABS: HEMATOCRIT 30.3 % (37.0-47.0)
[2023-02-19 22:49] LABS: ALBUMIN 3.4 g/dL (3.2-5.0); ALKALINE PHOSPHATASE 87 u/l (38-126); BUN 14 mg/dL (8-23); BUN/CREATININE RATIO 20 (12-20 (CALC)); CARBON DIOXIDE 30 mmol/l (22-30); CHLORIDE 85 mmol/l (95-108); CREATININE 0.7 mg/dL (0.5-1.0); GFR FOR AFR.AMER. > 60 ML/MIN (>=60 (CALC)); GFR OTHER RACES > 60 ML/MIN (>=60 (CALC)); SGOT/AST 28 u/l (9-36); TOTAL PROTEIN 6.4 g/dL (6.3-8.2)
[2023-02-19 23:03] LABS: ANION GAP 9 (6-22 (CALC)); SODIUM 120 mmol/l (137-146)
[2023-02-19] MEDS ORDERED: SOD CHLORIDE1 G2 OD (23:22)
[2023-02-20] VITALS: BP 109/44
[2023-02-20 00:15] VITALS: BP 119/48
[2023-02-20 00:21] VITALS: BP 119/48
[2023-02-20] MEDS ORDERED: SOD CHLORIDE1 G2 OD (10:48)
== END 2023-02-20 00:35 | disposition home or self-care (01) ==
LOC: ED 21:43
PROVIDERS: Family Medicine
DX: J43.9 Emphysema, unspecified (principal); E87.1 Hypo-osmolality and hyponatremia; R91.8 Other nonspecific abnormal finding of lung field; I10 Essential (primary) hypertension; I25.10 Atherosclerotic heart disease of native coronary artery without angina pectoris; I73.9 Peripheral vascular disease, unspecified; F32.A Depression, unspecified; I48.91 Unspecified atrial fibrillation; K21.9 Gastro-esophageal reflux disease without esophagitis; F41.9 Anxiety disorder, unspecified; C91.10 Chronic lymphocytic leukemia of B-cell type not having achieved remission; Z99.81 Dependence on supplemental oxygen; Z20.822 Contact with and (suspected) exposure to COVID-19

== ENCOUNTER 2023-04-22 14:13 | Inpatient (IN) | payer MEDICARE, MEDICAID ==
[2023-04-22] VITALS (32 sets, daily range): BP systolic 96–148; BP diastolic 44–70
[~2023-04-22] VITALS: Ht 154.9 cm; Wt 45.0 kg
[~2023-04-22 14:13] MED LIST changes: +SOD CHLORIDE1 G2 OD
[2023-04-22 15:58] LABS: HEMOGLOBIN 12.6 g/dl (12.0-16.0); IMMATURE GRANULOCYTES 0.3 % (0.0-5.0); MEAN CORPUSCULAR HGB CONC 29.2 g/dL CAL (32.0-36.0); PLATELET COUNT 266 thou/uL (130-400); RED CELL DISTRI WIDTH 14.9 % (11.5-15.5)
[2023-04-22 16:10] LABS: HEMATOCRIT 43.1 % (37.0-47.0); MANUAL DIFFERENTIAL YES; MEAN CELL VOLUME 95.8 fL CALC (80.0-100.0)
[2023-04-22 16:20] LABS: BAND 5 % (0-8)
[2023-04-22 16:25] LABS: ALKALINE PHOSPHATASE 77 u/l (38-126); BUN 12 mg/dL (8-23); BUN/CREATININE RATIO 18 (12-20 (CALC)); CHLORIDE 86 mmol/l (95-108); CREATININE 0.7 mg/dL (0.5-1.0); GFR FOR AFR.AMER. > 60 ML/MIN (>=60 (CALC)); GFR OTHER RACES > 60 ML/MIN (>=60 (CALC)); LIPASE 55 u/l (23-300); POTASSIUM 4.5 mmol/l (3.5-5.1); SGOT/AST 46 u/l (9-36)
[2023-04-22 16:36] LABS: SODIUM 133 mmol/l (137-146)
[2023-04-22 16:37] LABS: ALBUMIN 4.1 g/dL (3.2-5.0); ANION GAP 12 (6-22 (CALC)); BILIRUBIN, TOTAL 0.6 mg/dL (0.02-1.3); TOTAL PROTEIN 8.2 g/dL (6.3-8.2)
[2023-04-22 16:38] LABS: CARBON DIOXIDE 40 mmol/l (22-30)
[2023-04-22 17:04] LABS: URINE BILIRUBIN - DIPSTICK NEGATIVE (NEGATIVE); URINE BLOOD DIPSTICK NEGATIVE (NEGATIVE); URINE COLOR YELLOW; URINE GLUCOSE - DIPSTICK NEGATIVE (NEGATIVE); URINE KETONE NEGATIVE (NEGATIVE); URINE LEUK ESTERASE NEGATIVE (NEGATIVE); URINE PH 7.5 (4.5-8.0); URINE PROTEIN - DIPSTICK NEGATIVE (NEG-TRACE); URINE SPECIFIC GRAVITY 1.015; URINE UROBILINOGEN - DIPSTICK 0.2 E.U./dL (0.2)
[2023-04-22 17:06] LABS: URINE NITRITE - DIPSTICK NEGATIVE (Negative)
[2023-04-23] VITALS (10 sets, daily range): BP systolic 113–175; BP diastolic 47–76
[2023-04-23 05:41] LABS: MEAN CELL VOLUME 95.4 fL CALC (80.0-100.0); MEAN CORPUSCULAR HGB 28.3 pG CALC (26.0-32.0); MEAN CORPUSCULAR HGB CONC 29.6 g/dL CAL (32.0-36.0); RED BLOOD COUNT 3.5 mill/uL (4.20-5.60); RED CELL DISTRI WIDTH 15.3 % (11.5-15.5)
[2023-04-23 05:47] LABS: HEMATOCRIT 33.4 % (37.0-47.0); HEMOGLOBIN 9.9 g/dl (12.0-16.0)
[2023-04-23 05:51] LABS: ALKALINE PHOSPHATASE 58 u/l (38-126); ANION GAP 4 (6-22 (CALC)); BILIRUBIN, TOTAL 0.5 mg/dL (0.02-1.3); BUN 10 mg/dL (8-23); BUN/CREATININE RATIO 14 (12-20 (CALC)); CARBON DIOXIDE 39 mmol/l (22-30); CHLORIDE 95 mmol/l (95-108); CREATININE 0.7 mg/dL (0.5-1.0); GFR FOR AFR.AMER. > 60 ML/MIN (>=60 (CALC)); GFR OTHER RACES > 60 ML/MIN (>=60 (CALC)); MAGNESIUM 1.7 mg/dL (1.6-2.3); POTASSIUM 4.4 mmol/l (3.5-5.1); SGOT/AST 25 u/l (9-36); SODIUM 133 mmol/l (137-146)
[2023-04-23 05:59] LABS: ALBUMIN 2.8 g/dL (3.2-5.0); TOTAL PROTEIN 5.7 g/dL (6.3-8.2)
[2023-04-23] MEDS ORDERED: ARICEPT10 MG PO (14:06)
[2023-04-23] MEDS ORDERED: REMERON15 MG PO (14:07)
[2023-04-23] MEDS ORDERED: PAROXETINE10 MG PO (14:10)
[2023-04-23] MEDS ORDERED: DILT-XR120 MG PO (14:15)
[2023-04-23] MEDS ORDERED: ELIQUIS2.5 MG PO (14:16)
[2023-04-23] MEDS ORDERED: LISINOPRIL10 MG PO (14:16)
[2023-04-23] MEDS ORDERED: ONE A DAY WOMEN PO (14:18)
[2023-04-23] MEDS ORDERED: FOLIC ACID1 MG PO (14:18)
[2023-04-23] MEDS ORDERED: ZOFRAN4 MG/TAB PO (14:20)
[2023-04-23] MEDS ORDERED: STIOLTO RESPIMA1 AER IN (14:21)
[2023-04-23] MEDS ORDERED: IPRATROPIU0.5 MG/3 M IN (14:24)
[2023-04-24 05:07] VITALS: BP 175/76
[2023-04-24 05:26] LABS: BASO% 0.1 % (0-3); EOS% 0.5 % (0-8); HEMATOCRIT 34.9 % (37.0-47.0); HEMOGLOBIN 10.5 g/dl (12.0-16.0); IMMATURE GRANULOCYTES 0.7 % (0.0-5.0); LYMPH% 29.6 % (15-41); MEAN CELL VOLUME 93.6 fL CALC (80.0-100.0); MEAN CORPUSCULAR HGB 28.2 pG CALC (26.0-32.0); MEAN CORPUSCULAR HGB CONC 30.1 g/dL CAL (32.0-36.0); MONO% 5.4 % (2-13); NEUT# 10.04 thou/uL (2.00-7.15); NEUT% 63.7 % (42-76); RED BLOOD COUNT 3.73 mill/uL (4.20-5.60); RED CELL DISTRI WIDTH 14.9 % (11.5-15.5)
[2023-04-24 05:50] LABS: ALBUMIN 3.2 g/dL (3.2-5.0); ALKALINE PHOSPHATASE 54 u/l (38-126); ANION GAP 5 (6-22 (CALC)); BILIRUBIN, TOTAL 0.5 mg/dL (0.02-1.3); BUN 10 mg/dL (8-23); BUN/CREATININE RATIO 19 (12-20 (CALC)); CARBON DIOXIDE 38 mmol/l (22-30); CHLORIDE 90 mmol/l (95-108); CREATININE 0.5 mg/dL (0.5-1.0); GFR FOR AFR.AMER. > 60 ML/MIN (>=60 (CALC)); GFR OTHER RACES > 60 ML/MIN (>=60 (CALC)); MAGNESIUM 1.7 mg/dL (1.6-2.3); POTASSIUM 3.9 mmol/l (3.5-5.1); SGOT/AST 32 u/l (9-36); SODIUM 130 mmol/l (137-146); TOTAL PROTEIN 6.5 g/dL (6.3-8.2)
[2023-04-24 06:12] VITALS: BP 187/88
[2023-04-24 08:00] VITALS: BP 187/88
[2023-04-24 10:15] VITALS: BP 147/72
[2023-04-24] MEDS ORDERED: VALTREX1 GM PO (10:57)
[2023-04-24] MEDS ORDERED: VIBRAMYCIN100 M2 PO (10:58)
[2023-04-24 11:15] VITALS: BP 155/89
== END 2023-04-24 12:16 | DRG 193 ==
LOC: ED 14:13 → MS2 21:13
PROVIDERS: Family Medicine; Nurse Practitioner Family; ADMIT Internal Medicine; ATTEND Internal Medicine
DX: J18.9 Pneumonia, unspecified organism (principal); J96.21 Acute and chronic respiratory failure with hypoxia; J96.22 Acute and chronic respiratory failure with hypercapnia; J44.0 Chronic obstructive pulmonary disease with (acute) lower respiratory infection; K59.00 Constipation, unspecified; B02.9 Zoster without complications; I10 Essential (primary) hypertension; I48.91 Unspecified atrial fibrillation; I25.10 Atherosclerotic heart disease of native coronary artery without angina pectoris; K21.9 Gastro-esophageal reflux disease without esophagitis; I73.9 Peripheral vascular disease, unspecified; F32.A Depression, unspecified; F41.9 Anxiety disorder, unspecified; Z99.81 Dependence on supplemental oxygen; Z79.01 Long term (current) use of anticoagulants; Z95.820 Peripheral vascular angioplasty status with implants and grafts; Z20.822 Contact with and (suspected) exposure to COVID-19
CPT/HCPCS: Q9967

== ENCOUNTER 2023-04-30 12:18 | Inpatient (IN) | payer MEDICARE, MEDICAID ==
[~2023-04-30] VITALS: Ht 154.9 cm; Wt 49.0 kg
[2023-04-30] VITALS (198 sets, daily range): BP systolic 59–155; BP diastolic 34–111
[~2023-04-30 12:18] MED LIST changes: +ARICEPT10 MG PO; +DILT-XR120 MG PO; +ELIQUIS2.5 MG PO; +FOLIC ACID1 MG PO; +IPRATROPIU0.5 MG/3 M IN; +LISINOPRIL10 MG PO; +ONE A DAY WOMEN PO; +REMERON15 MG PO; +VALTREX1 GM PO; +VIBRAMYCIN100 M2 PO; +ZOFRAN4 MG/TAB PO
[2023-04-30 13:43] LABS: BASO% 0.1 % (0-3); IMMATURE GRANULOCYTES 0.3 % (0.0-5.0); LYMPH% 36.9 % (15-41); MEAN CELL VOLUME 93.7 fL CALC (80.0-100.0); MEAN CORPUSCULAR HGB 28.1 pG CALC (26.0-32.0); MONO% 2.6 % (2-13); NEUT# 12.84 thou/uL (2.00-7.15); NEUT% 60.1 % (42-76); RED BLOOD COUNT 3.02 mill/uL (4.20-5.60); RED CELL DISTRI WIDTH 14.9 % (11.5-15.5)
[2023-04-30 13:54] LABS: ALKALINE PHOSPHATASE 56 u/l (38-126); ANION GAP 6 (6-22 (CALC)); BILIRUBIN, TOTAL 0.6 mg/dL (0.02-1.3); BUN 20 mg/dL (8-23); BUN/CREATININE RATIO 32 (12-20 (CALC)); CARBON DIOXIDE 33 mmol/l (22-30); CHLORIDE 92 mmol/l (95-108); CREATININE 0.6 mg/dL (0.5-1.0); ETHYL ALCOHOL 0 mg/dl (0-30); GFR FOR AFR.AMER. > 60 ML/MIN (>=60 (CALC)); GFR OTHER RACES > 60 ML/MIN (>=60 (CALC)); LIPASE 49 u/l (23-300); SGOT/AST 44 u/l (9-36); SODIUM 126 mmol/l (137-146); TOTAL PROTEIN 6.4 g/dL (6.3-8.2)
[2023-04-30 13:55] LABS: POTASSIUM 4.8 mmol/l (3.5-5.1)
[2023-04-30 13:56] LABS: INTERNATIONAL NORMALIZED RATIO 1.1 RATIO (0.7-1.3); PROTHROMBIN TIME 10.6 SECONDS (9.0-12.5)
[2023-04-30 14:19] LABS: HEMATOCRIT 28.3 % (37.0-47.0); HEMOGLOBIN 8.5 g/dl (12.0-16.0)
[2023-05-01] VITALS (302 sets, daily range): BP systolic 73–162; BP diastolic 41–85
[2023-05-01 05:27] LABS: HEMATOCRIT 27.8 % (37.0-47.0); HEMOGLOBIN 8.6 g/dl (12.0-16.0); MEAN CELL VOLUME 90.6 fL CALC (80.0-100.0); MEAN CORPUSCULAR HGB CONC 30.9 g/dL CAL (32.0-36.0); RED BLOOD COUNT 3.07 mill/uL (4.20-5.60); RED CELL DISTRI WIDTH 15.5 % (11.5-15.5)
[2023-05-01 05:55] LABS: ALBUMIN 2.9 g/dL (3.2-5.0); BILIRUBIN, TOTAL 0.3 mg/dL (0.02-1.3); CREATININE 1.3 mg/dL (0.5-1.0); MAGNESIUM 1.8 mg/dL (1.6-2.3); POTASSIUM 4.5 mmol/l (3.5-5.1); TOTAL PROTEIN 6.1 g/dL (6.3-8.2)
[2023-05-02] VITALS (101 sets, daily range): BP systolic 101–186; BP diastolic 48–84
[2023-05-02 06:09] LABS: HEMATOCRIT 23.6 % (37.0-47.0); HEMOGLOBIN 7.3 g/dl (12.0-16.0); MEAN CELL VOLUME 90.8 fL CALC (80.0-100.0); MEAN CORPUSCULAR HGB 28.1 pG CALC (26.0-32.0); MEAN CORPUSCULAR HGB CONC 30.9 g/dL CAL (32.0-36.0); RED BLOOD COUNT 2.6 mill/uL (4.20-5.60); RED CELL DISTRI WIDTH 16.3 % (11.5-15.5)
[2023-05-02 06:15] LABS: ALBUMIN 2.5 g/dL (3.2-5.0); ALKALINE PHOSPHATASE 52 u/l (38-126); ANION GAP 8 (6-22 (CALC)); BILIRUBIN, TOTAL 0.2 mg/dL (0.02-1.3); BUN 24 mg/dL (8-23); BUN/CREATININE RATIO 25 (12-20 (CALC)); CARBON DIOXIDE 26 mmol/l (22-30); CHLORIDE 105 mmol/l (95-108); GFR FOR AFR.AMER. > 60 ML/MIN (>=60 (CALC)); GFR OTHER RACES 53 ML/MIN (>=60 (CALC)); MAGNESIUM 1.9 mg/dL (1.6-2.3); POTASSIUM 3.7 mmol/l (3.5-5.1); SGOT/AST 21 u/l (9-36); SODIUM 134 mmol/l (137-146); TOTAL PROTEIN 5.3 g/dL (6.3-8.2)
[2023-05-03] VITALS (114 sets, daily range): BP systolic 104–204; BP diastolic 42–109
[2023-05-03 05:32] LABS: BASO% 0.1 % (0-3); HEMATOCRIT 23.1 % (37.0-47.0); HEMOGLOBIN 7.2 g/dl (12.0-16.0); IMMATURE GRANULOCYTES 0.4 % (0.0-5.0); LYMPH% 30.9 % (15-41); MEAN CELL VOLUME 90.6 fL CALC (80.0-100.0); MEAN CORPUSCULAR HGB 28.2 pG CALC (26.0-32.0); MEAN CORPUSCULAR HGB CONC 31.2 g/dL CAL (32.0-36.0); MONO% 4.1 % (2-13); NEUT# 6.59 thou/uL (2.00-7.15); NEUT% 64.5 % (42-76); RED BLOOD COUNT 2.55 mill/uL (4.20-5.60); RED CELL DISTRI WIDTH 16.6 % (11.5-15.5)
[2023-05-03 05:47] LABS: ANION GAP 8 (6-22 (CALC)); BUN 25 mg/dL (8-23); BUN/CREATININE RATIO 31 (12-20 (CALC)); CARBON DIOXIDE 24 mmol/l (22-30); CHLORIDE 107 mmol/l (95-108); CREATININE 0.8 mg/dL (0.5-1.0); GFR FOR AFR.AMER. > 60 ML/MIN (>=60 (CALC)); GFR OTHER RACES > 60 ML/MIN (>=60 (CALC)); POTASSIUM 3.2 mmol/l (3.5-5.1); SODIUM 136 mmol/l (137-146)
[2023-05-03] MEDS ORDERED: RA IRON65 MG PO (16:54)
[2023-05-04] VITALS (54 sets, daily range): BP systolic 111–193; BP diastolic 51–85
[2023-05-04 04:48] LABS: BASO% 0.1 % (0-3); HEMATOCRIT 24.2 % (37.0-47.0); HEMOGLOBIN 7.3 g/dl (12.0-16.0); IMMATURE GRANULOCYTES 0.5 % (0.0-5.0); LYMPH% 42.6 % (15-41); MEAN CELL VOLUME 91.7 fL CALC (80.0-100.0); MEAN CORPUSCULAR HGB 27.7 pG CALC (26.0-32.0); MEAN CORPUSCULAR HGB CONC 30.2 g/dL CAL (32.0-36.0); MONO% 4.6 % (2-13); NEUT# 6.89 thou/uL (2.00-7.15); NEUT% 52.2 % (42-76); RED BLOOD COUNT 2.64 mill/uL (4.20-5.60); RED CELL DISTRI WIDTH 16.4 % (11.5-15.5)
[2023-05-04 05:02] LABS: ANION GAP 5 (6-22 (CALC)); BUN 20 mg/dL (8-23); BUN/CREATININE RATIO 31 (12-20 (CALC)); CARBON DIOXIDE 27 mmol/l (22-30); CHLORIDE 109 mmol/l (95-108); CREATININE 0.6 mg/dL (0.5-1.0); GFR FOR AFR.AMER. > 60 ML/MIN (>=60 (CALC)); GFR OTHER RACES > 60 ML/MIN (>=60 (CALC)); POTASSIUM 3.1 mmol/l (3.5-5.1); SODIUM 137 mmol/l (137-146)
[2023-05-05] VITALS (17 sets, daily range): BP systolic 115–155; BP diastolic 41–65
[2023-05-05 04:43] LABS: LYMPH% 32.2 % (15-41); MEAN CELL VOLUME 96.8 fL CALC (80.0-100.0); MEAN CORPUSCULAR HGB 28.4 pG CALC (26.0-32.0); MEAN CORPUSCULAR HGB CONC 29.3 g/dL CAL (32.0-36.0); MONO% 4.1 % (2-13); NEUT# 13.62 thou/uL (2.00-7.15); NEUT% 63.3 % (42-76); RED BLOOD COUNT 3.17 mill/uL (4.20-5.60); RED CELL DISTRI WIDTH 16.6 % (11.5-15.5)
[2023-05-05 04:59] LABS: ALKALINE PHOSPHATASE 55 u/l (38-126); BUN 20 mg/dL (8-23); BUN/CREATININE RATIO 30 (12-20 (CALC)); CARBON DIOXIDE 29 mmol/l (22-30); CHLORIDE 110 mmol/l (95-108); CREATININE 0.7 mg/dL (0.5-1.0); GFR FOR AFR.AMER. > 60 ML/MIN (>=60 (CALC)); GFR OTHER RACES > 60 ML/MIN (>=60 (CALC)); MAGNESIUM 2.1 mg/dL (1.6-2.3); SGOT/AST 25 u/l (9-36); SODIUM 141 mmol/l (137-146)
[2023-05-05 05:03] LABS: ANION GAP 6 (6-22 (CALC)); BILIRUBIN, TOTAL 0.5 mg/dL (0.02-1.3); POTASSIUM 4.4 mmol/l (3.5-5.1); TOTAL PROTEIN 6.6 g/dL (6.3-8.2)
[2023-05-05 05:07] LABS: HEMATOCRIT 30.7 % (37.0-47.0); IMMATURE GRANULOCYTES 0.4 % (0.0-5.0)
[2023-05-05 07:38] LABS: URINE BILIRUBIN - DIPSTICK NEGATIVE (NEGATIVE); URINE BLOOD DIPSTICK LARGE (NEGATIVE); URINE COLOR YELLOW; URINE GLUCOSE - DIPSTICK NEGATIVE (NEGATIVE); URINE KETONE NEGATIVE (NEGATIVE); URINE LEUK ESTERASE NEGATIVE (NEGATIVE); URINE PH 5.5 (4.5-8.0); URINE PROTEIN - DIPSTICK 30 mg/dL (NEG-TRACE); URINE SPECIFIC GRAVITY 1.025; URINE UROBILINOGEN - DIPSTICK 0.2 E.U./dL (0.2)
[2023-05-05 07:41] LABS: URINE NITRITE - DIPSTICK NEGATIVE (Negative)
[2023-05-05 07:42] LABS: URINE RBC >100 RBC/hpf (0-5)
== END 2023-05-06 00:05 | disposition hospice, inpatient (51) | DRG 208 ==
LOC: ED 12:18 → ICU 16:01 → ED 16:01 → ICU 16:28 → MS2 05-05 12:06 → ICU 05-05 12:08 → MS2 05-06 00:05
PROVIDERS: Internal Medicine; Nurse Practitioner; Nurse Practitioner Family; ADMIT Internal Medicine; ATTEND Internal Medicine
PROC: 5A1945Z Respiratory Ventilation, 24-96 Consecutive Hours (ICD-10-PCS; principal; 2023-04-30)
PROC: 02HV33Z Insertion of Infusion Device into Superior Vena Cava, Percutaneous Approach (ICD-10-PCS; 2023-04-30)
PROC: 3E043XZ Introduction of Vasopressor into Central Vein, Percutaneous Approach (ICD-10-PCS; 2023-04-30)
PROC: 0T9B70Z Drainage of Bladder with Drainage Device, Via Natural or Artificial Opening (ICD-10-PCS; 2023-04-30)
PROC: 5A09357 Assistance with Respiratory Ventilation, Less than 24 Consecutive Hours, Continuous Positive Airway Pressure (ICD-10-PCS; 2023-05-04)
DX: J96.21 Acute and chronic respiratory failure with hypoxia (principal); J18.9 Pneumonia, unspecified organism; N17.9 Acute kidney failure, unspecified; G93.40 Encephalopathy, unspecified; J43.9 Emphysema, unspecified; J96.22 Acute and chronic respiratory failure with hypercapnia; I95.9 Hypotension, unspecified; I10 Essential (primary) hypertension; I48.91 Unspecified atrial fibrillation; I73.9 Peripheral vascular disease, unspecified; I25.10 Atherosclerotic heart disease of native coronary artery without angina pectoris; F41.9 Anxiety disorder, unspecified; F32.A Depression, unspecified; K21.9 Gastro-esophageal reflux disease without esophagitis; Z99.81 Dependence on supplemental oxygen; Z66 Do not resuscitate; Z51.5 Encounter for palliative care; Z87.01 Personal history of pneumonia (recurrent); Z95.820 Peripheral vascular angioplasty status with implants and grafts
CPT/HCPCS: J1160; J1650; J2060; S0164